=== PATIENT | male | born 1945 | race Caucasian/White ===

== ENCOUNTER 2019-02-16 09:45 | Emergency (ER) | payer OTHER ==
--- NOTE | 2019-02-16 11:55 | RAD REPORT ---
EXAM DESCRIPTION: RAD - Tib Fib Left - 02/16/2019 11:19 am CLINICAL HISTORY: Fall, left tib-fib pain COMPARISON: No remote imaging available. FINDINGS: Knee joint findings are separately detailed. Distal to the knee joint the tibia and fibula show no fracture or acute finding. Very minimal degenerative change at the ankle joint with no acute findings seen. No foreign body or other soft tissue abnormality. IMPRESSION: Negative left tibia and fibula examination with the exception of the tibial plateau whic h is separately detailed in a knee report.
--- NOTE | 2019-02-16 11:58 | RAD REPORT ---
EXAM DESCRIPTION: RAD - Knee Left 3 View - 02/16/2019 11:19 am CLINICAL HISTORY: Fall, left knee pain COMPARISON: No remote in FINDINGS: A lateral tibial plateau fracture is present depressed approximately 8 mm along the far le ft lateral margin. Multiple small fracture fragments are present. On the AP projection there is suspe cted to be an additional sagittal oriented fracture plane extends into the metaphysis. Underlying knee joint degenerative changes are present seen as medial compartment marginal spurring a nd spurring of the tibial spine. There are minimal spurs along the articular margins of the patella.J oint effusion is present. Fat fluid level is not currently present. No foreign body or soft tissue ab normality seen. IMPRESSION: Comminuted lateral tibial plateau acute fracture depressed up to 8 mm along the lateral margin. Suspected sagittal fracture plane in the lateral tibial plateau extending into the metaphysis. No dis traction of this suspected fracture. Clinical concerns for internal derangement or occult bony injury could be further assessed with MR im aging.
--- NOTE | 2019-02-16 11:59 | RAD REPORT ---
EXAM DESCRIPTION: RAD - Hip Left 2 View - 02/16/2019 11:19 am CLINICAL HISTORY: Fall, hip and leg pain COMPARISON: None. FINDINGS: AP and frogleg views of the left hip were obtained. There is no fracture or dislocation. N o acute or destructive bony process seen. Mild degenerative changes are present along the superior a cetabular rim. No AVN or focal femoral head abnormality. No soft tissue abnormality. IMPRESSION: Degenerative change at the left hip joint. No fracture or acute finding seen.
--- NOTE | 2019-02-16 12:30 | EDPHYS ---
Physician Documentation [facility] Name: Robert Tubbs Age: 73 yrs Sex: Male : 1945 Arrival Date: 02/16/2019 Time: 09:49 Bed Treatment Private MD: ED Physician Jose Cruz Matthews HPI: 02/16 10:21 This 73 yrs old Male presents to ER via Ambulatory with complaints of Knee jmm Pain, Hip Pain. 10:21 The patient presents with an injury, pain. Onset: The symptoms/episode began/occurred jmm acutely, just prior to arrival. Modifying factors: The symptoms are alleviated by elevating leg, the symptoms are aggravated by movement, weight bearing. Associated signs and symptoms: Pertinent positives: swelling. This is a 73 year old male that presents to the ED with complaints of left hip pain, left knee pain, and left lower leg pain following a fall which occurred just prior to arrival. Patient states he slipped on dirt in his garage. Denies head injury. . Historical: - Allergies: 10:08 Unknown antibiotic; ss - PSHx: 10:08 R rotator cuff; Tonsillectomy; ss - Immunization history:: Adult Immunizations up to date. - Social history:: Smoking status: Patient/guardian denies using tobacco. - Ebola Screening: : Patient denies exposure to infectious person Patient denies travel to an Ebola-affected area in the 21 days before illness onset. ROS: 10:21 Constitutional: Negative for fever, chills, and weight loss, Cardiovascular: Negative jmm for chest pain, palpitations, and edema, Respiratory: Negative for shortness of breath, cough, wheezing, and pleuritic chest pain. 10:21 MS/extremity: Positive for injury or acute deformity, pain. 10:21 All other systems are negative. Exam: 10:21 Head/Face: atraumatic. Eyes: EOMI, no conjunctival erythema appreciated ENT: Moist jmm Mucus Membranes Neck: Trachea midline, Supple Chest/axilla: Normal chest wall appearance and motion. Cardiovascular: Regular rate and rhythm. No edema appreciated Respiratory: Normal respirations, no respiratory distress appreciated Abdomen/GI: Non distended, soft Back: Normal ROM Skin: General appearance color normal 10:21 Constitutional: The patient appears in no acute distress, alert, awake. 10:21 Musculoskeletal/extremity: left knee swelling noted, mild tibial tenderness, compartments are soft, NVI, full dorsalis pulse, NVI. 10:21 Skin: Appearance: Color: normal in color. 10:21 Neuro: Orientation: is normal, Mentation: is normal, Memory: is normal. 10:21 Psych: Behavior/mood is pleasant, cooperative. Vital Signs: 10:08 BP 190 / 66; Pulse 59; Resp 16; Temp 98.2(TE); Pulse Ox 100% on R/A; Weight 81.65 kg; ss Height 5 ft. 8 in. (172.72 cm); Pain /; 10:08 Body Mass Index 27.37 (81.65 kg, 172.72 cm) ss Procedures: 12:10 Splinting: Splint applied to left leg using knee immobilizer, applied by nurse. kelli Examined by me, post splint application: neurovascular intact, 2+ distal pulses palpable, brisk capillary refill noted, Patient tolerated. MDM: 10:21 Patient medically screened. [facility] 12:24 Data reviewed: vital signs, nurses notes. Counseling: I had a detailed discussion with kelli the patient and/or guardian regarding: the historical points, exam findings, and any diagnostic results supporting the discharge/admit diagnosis, radiology results, the need for outpatient follow up, to return to the emergency department if symptoms worsen or persist or if there are any questions or concerns that arise at home. 12:24 ED course: I discussed the patient with Dr. Olivier whom advised knee immobilizer with non jmm weight bearing. I discussed this in detail with the patient whom agreed with the plan of care. . 02/16 10:33 Order name: Hip Left 2 View XRAY; Complete Time: 12:02 [facility] 02/16 10:33 Order name: Knee Left 3 View XRAY; Complete Time: 12:02 [facility] 02/16 10:33 Order name: Tib Fib Left XRAY; Complete Time: 12:02 [facility] 02/16 12:04 Order name: Knee Immobilizer; Complete Time: 12:44 [facility] 02/16 12:44 Order name: Crutches; Complete Time: 12:44 ss 02/16 12:44 Order name: Crutch Training; Complete Time: 12:44 ss Administered Medications: No medications were administered Disposition: 15:33 Co-signature as Attending Physician, Jose Cruz Matthews MD I agree with the assessment and viki plan of care. Disposition: 02/16/19 12:28 Discharged to Home. Impression: Tibial Plateau Fracture. - Condition is Stable. - Discharge Instructions: Displaced Tibial Plateau Fracture. - Prescriptions for orphenadrine citrate 100 mg Oral Tablet Sustained Release - take 1 tablet by ORAL route 2 times per day As needed; 20 tablet. - Medication Reconciliation Form, Thank You Letter, Antibiotic Education, Prescription Opioid Use form. - Follow up: Rudy Olivier MD; When: 1 - 2 days; Reason: Recheck today's complaints, Continuance of care, Re-evaluation by your physician. Signatures: Dispatcher [employer] EDID Jose Cruz Matthews MD MD cha Mickail, Joel, PA PA Shira Vazquez RN RN ss Corrections: (The following items were deleted from the chart) 12:45 12:28 02/16/2019 12:28 Discharged to Home. Impression: Tibial Plateau Fracture. ss Condition is Stable. Forms are Medication Reconciliation Form, Thank You Letter, Antibiotic Education, Prescription Opioid Use. Follow up: Dr. Rudy Olivier; When: 1 - 2 days; Reason: Recheck today's complaints, Continuance of care, Re-evaluation by your physician. kelli
--- NOTE | 2019-02-16 12:30 | ER ---
Nurse's Notes [facility] Name: Robert Tubbs Age: 73 yrs Sex: Male : 1945 Arrival Date: 02/16/2019 Time: 09:49 Bed Treatment Private MD: Diagnosis: Tibial Plateau Fracture Presentation: 02/16 10:07 Presenting complaint: Patient states: Mild L hip and knee pain that began after ss tripping in garage this morning at 0845. Transition of care: patient was not received from another setting of care. Onset of symptoms was February 16, 2019. Risk Assessment: Do you want to hurt yourself or someone else? Patient reports no desire to harm self or others. Initial Sepsis Screen: Does the patient meet any 2 criteria? No. Patient's initial sepsis screen is negative. Does the patient have a suspected source of infection? No. Patient's initial sepsis screen is negative. Care prior to arrival: None. 10:07 Method Of Arrival: Ambulatory ss 10:07 Acuity: SYMONE 4 ss Historical: - Allergies: 10:08 Unknown antibiotic; ss - PSHx: 10:08 R rotator cuff; Tonsillectomy; ss - Immunization history:: Adult Immunizations up to date. - Social history:: Smoking status: Patient/guardian denies using tobacco. - Ebola Screening: : Patient denies exposure to infectious person Patient denies travel to an Ebola-affected area in the 21 days before illness onset. Screenin:07 Abuse screen: Denies threats or abuse. Denies injuries from another. Nutritional ss screening: No deficits noted. Tuberculosis screening: Never had TB. Fall Risk Fall in past 12 months (25 points). No secondary diagnosis (0 pts). No IV (0 pts). Ambulatory Aid- None/Bed Rest/Nurse Assist (0 pts). Gait- Normal/Bed Rest/Wheelchair (0 pts) Mental Status- Oriented to own ability (0 pts). Assessment: 10:07 General: Appears in no apparent distress. comfortable, Behavior is calm, cooperative, ss Denies fever, feeling ill, fatigue, chills. Pain: Complains of pain in L hip, L knee Pain currently is 1 out of 10 on a pain scale. Quality of pain is described as aching, tender, Pain began just after fall Is continuous, Aggravated by increased activity. Neuro: Level of Consciousness is awake, alert, obeys commands, Oriented to person, place, time, situation. Cardiovascular: Capillary refill < 3 seconds is brisk in bilateral fingers Patient's skin is warm and dry. Respiratory: Airway is patent Respiratory effort is even, unlabored, Respiratory pattern is regular, symmetrical. GI: Abdomen is non-distended. EENT: Nares are clear Oral mucosa is moist. Throat is clear. Derm: Skin is intact, is healthy with good turgor, Skin is dry, Skin is pink, warm \T\ dry. normal. Musculoskeletal: Circulation, motion, and sensation intact. Range of motion: intact in all extremities, Swelling minimal swelling noted to L knee. 10:11 Reassessment: patient reports he has not taken his morning medications yet. ss Vital Signs: 10:08 BP 190 / 66; Pulse 59; Resp 16; Temp 98.2(TE); Pulse Ox 100% on R/A; Weight 81.65 kg; ss Height 5 ft. 8 in. (172.72 cm); Pain 10; 10:08 Body Mass Index 27.37 (81.65 kg, 172.72 cm) ED Course: 09:49 Patient arrived in ED. cf2 10:07 Triage completed. ss 10:07 Patient has correct armband on for positive identification. Bed in low position. Call ss light in reach. 10:08 Arm band placed on right wrist. ss 10:17 Compa Nieves PA is PHCP. m 10:17 Jose Cruz Matthews MD is Attending Physician. jmm 11:13 Shira Barreto, RANJANA is Primary Nurse. ss 11:20 Hip Left 2 View XRAY In Process Unspecified. EDMS 11:20 Knee Left 3 View XRAY In Process Unspecified. EDMS 11:20 Tib Fib Left XRAY In Process Unspecified. EDMS 12:26 Rudy Olivier MD is Referral Physician. m 12:44 No provider procedures requiring assistance completed. Patient did not have IV access ss during this emergency room visit. Crutch training done. Knee immobilizer applied on left knee. Administered Medications: No medications were administered Outcome: 12:28 Discharge ordered by . [facility] 12:44 Discharged to home via wheelchair, with crutches. ss 12:44 Condition: good 12:44 Discharge instructions given to patient, family, Instructed on discharge instructions, follow up and referral plans. medication usage, crutch walking, Demonstrated understanding of instructions, follow-up care, medications, crutch walking, Prescriptions given X 1. 12:45 Patient left the ED. Signatures: Dispatcher [employer] EDMS Compa Nieves PA PA jmm Smirch, Shelby, RN RN Payton Fernandez 2
== END 2019-02-16 12:45 | disposition home or self-care (01) ==
LOC: ER 09:45
DX: S82.142A Displaced bicondylar fracture of left tibia, initial encounter for closed fracture (principal); W01.0XXA Fall on same level from slipping, tripping and stumbling without subsequent striking against object, initial encounter; Y93.89 Activity, other specified; Y92.008 Other place in unspecified non-institutional (private) residence as the place of occurrence of the external cause
CPT/HCPCS: 99283

== ENCOUNTER 2019-05-19 14:25 | Emergency (ER) | payer OTHER ==
[2019-05-19] MEDS ORDERED: PHENYLEPHRINE 0.5% NOSE 15ML NAS ONE ×2 (14:39→15:49)
--- NOTE | 2019-05-19 17:22 | ER ---
Nurse's Notes [facility] Name: Robert Tubbs Age: 73 yrs Sex: Male : 1945 Arrival Date: 05/19/2019 Time: 14:26 Bed 18 Private MD: Diagnosis: Epistaxis Presentation: 05/19 14:35 Presenting complaint: Patient states: Nose bleed > 15 min, no trauma or injury, small ph amount of bleeding noted in triage. Transition of care: patient was not received from another setting of care. Onset of symptoms was May 19, 2019. Risk Assessment: Do you want to hurt yourself or someone else? Patient reports no desire to harm self or others. Initial Sepsis Screen: Does the patient meet any 2 criteria? No. Patient's initial sepsis screen is negative. Does the patient have a suspected source of infection? No. Patient's initial sepsis screen is negative. 14:35 Method Of Arrival: Ambulatory ph 14:35 Acuity: SYMONE 4 ph Historical: - Allergies: 14:34 unknown antibiotic; ph - Home Meds: 14:34 Plavix Oral [Active]; Aspirin Oral [Active]; amlodipine oral [Active]; atorvastatin ph oral oral [Active]; - PMHx: 14:34 Hypertension; High Cholesterol; ph - PSHx: 14:34 R rotator cuff; Tonsillectomy; cardiac stent; ph - Immunization history:: Last tetanus immunization: unknown. - Social history:: Smoking status: Patient/guardian denies using tobacco. - Ebola Screening: : No symptoms or risks identified at this time. Screenin:45 Abuse screen: Denies threats or abuse. Nutritional screening: No deficits noted. em Tuberculosis screening: No symptoms or risk factors identified. Fall Risk None identified. Assessment: 14:49 General: Appears in no apparent distress. comfortable, Behavior is calm, cooperative, em Denies fever. Pain: Denies pain. Neuro: Level of Consciousness is awake, alert, obeys commands, Oriented to person, place, time, situation, Appropriate for age. Cardiovascular: Capillary refill < 3 seconds Patient's skin is warm and dry. Respiratory: Airway is patent Respiratory effort is even, unlabored, Respiratory pattern is regular, symmetrical. GI: Patient currently denies nausea, vomiting. EENT: Nares with bleeding noted bilaterally. Derm: Skin is intact, is healthy with good turgor, Skin is pink, warm \T\ dry. Musculoskeletal: Circulation, motion, and sensation intact. Capillary refill < 3 seconds, Range of motion: intact in all extremities. 15:30 Reassessment: Patient appears in no apparent distress at this time. Patient and/or em family updated on plan of care and expected duration. Pain level reassessed. Patient is alert, oriented x 3, equal unlabored respirations, skin warm/dry/pink. bleeding unchanged, blood noted in posterior pharynx, provider notified. 16:34 Reassessment: Patient appears in no apparent distress at this time. drainage noted em around rhino rocket, provider notified. 17:08 Reassessment: bleeding has diminished on the right nare, provider notified. em Vital Signs: 14:34 BP 175 / 62; Pulse 61; Resp 18; Temp 98.0; Pulse Ox 99% on R/A; Weight 79.38 kg; Height ph 5 ft. 8 in. (172.72 cm); 17:14 BP 197 / 67; Pulse 60; Resp 18; Pulse Ox 100% on R/A; em 14:34 Body Mass Index 26.61 (79.38 kg, 172.72 cm) ph 17:14 pt reports he takes BP medication in the evening around dinner, provider notified em ED Course: 14:26 Patient arrived in ED. mr 14:30 Compa Nieves PA is PHCP. [facility] 14:30 José Luis Beaulieu MD is Attending Physician. m 14:35 Triage completed. ph 14:36 Bc Diaz LVN is Primary Nurse. em 14:45 Patient has correct armband on for positive identification. Bed in low position. Call em light in reach. 14:48 Arm band placed on. em 16:10 Assist provider with nosebleed control using direct pressure, nasal clamp, rhino rocket em placed for extensive packing needs, Bleeding from right nares. Set up for procedure. Performed by Compa SNIDER Bleeding stopped. Patient tolerated well. 17:21 Angeline Regalado MD is Referral Physician. m 17:36 Patient did not have IV access during this emergency room visit. em Administered Medications: 15:15 Drug: Vish-Synephrine [place] 0.5 % 2 sprays Route: Intranasal; Site: right nare; em 15:54 Follow up: Response: Other; bleeding unchanged em Outcome: 17:21 Discharge ordered by MD. pereira 17:35 Discharged to home ambulatory. em 17:35 Condition: good 17:35 Discharge instructions given to patient, Instructed on discharge instructions, follow up and referral plans. medication usage, Demonstrated understanding of instructions, follow-up care, medications, Prescriptions given X 1. 17:36 Patient left the ED. em Signatures: Compa Nieves PA PA jmm Rivera, Mary mr Diaz, Bc, STRETCHING MACHINE OPERATOR STRETCHING MACHINE OPERATOR em Teresa Miller, RN RN ph Corrections: (The following items were deleted from the chart) 14:45 14:45 Patient has correct armband on for positive identification. Placed in gown. Bed em in low position. Call light in reach. Adult w/ patient. em
--- NOTE | 2019-05-19 17:22 | EDPHYS ---
Physician Documentation [facility] Name: Robert Tubbs Age: 73 yrs Sex: Male : 1945 Arrival Date: 05/19/2019 Time: 14:26 Bed 18 Private MD: ED Physician José Luis Beaulieu HPI: 05/19 14:56 This 73 yrs old Male presents to ER via Ambulatory with complaints of Nose jmm Bleed. 14:56 The patient presents with a nose bleed, that is apparently anterior, from the right jmm nare. Onset: The symptoms/episode began/occurred gradually, .5 hour(s) ago. Modifying factors: The symptoms are alleviated by nothing. the symptoms are aggravated by nothing. Associated signs and symptoms: Loss of consciousness: the patient experienced no loss of consciousness. This is a 73 year old male with a history of htn, hlp that presents to the ED with complaints of right nostril nose bleeding beginning just prior to arrival. patient has had similar episodes in the past but more mild. Patient denies vomiting blood, shortness of breath. . Historical: - Allergies: 14:34 unknown antibiotic; ph - Home Meds: 14:34 Plavix Oral [Active]; Aspirin Oral [Active]; amlodipine oral [Active]; atorvastatin ph oral oral [Active]; - PMHx: 14:34 Hypertension; High Cholesterol; ph - PSHx: 14:34 R rotator cuff; Tonsillectomy; cardiac stent; ph - Immunization history:: Last tetanus immunization: unknown. - Social history:: Smoking status: Patient/guardian denies using tobacco. - Ebola Screening: : No symptoms or risks identified at this time. ROS: 14:56 Constitutional: Negative for fever, chills, and weight loss. jmm 14:56 Neck: Negative for injury, pain, and swelling, Cardiovascular: Negative for chest pain, palpitations, and edema, Respiratory: Negative for shortness of breath, cough, wheezing, and pleuritic chest pain, Abdomen/GI: Negative for abdominal pain, nausea, vomiting, diarrhea, and constipation, Neuro: Negative for headache, weakness, numbness, tingling, and seizure. 14:56 ENT: Positive for nose bleed. 14:56 All other systems are negative. Exam: 14:56 Constitutional: This is a well developed, well nourished patient who is awake, alert, jmm and in no acute distress. Head/Face: atraumatic. Eyes: EOMI, no conjunctival erythema appreciated 14:56 Neck: Trachea midline, Supple Chest/axilla: Normal chest wall appearance and motion. Cardiovascular: Regular rate and rhythm. No edema appreciated Respiratory: Normal respirations, no respiratory distress appreciated Abdomen/GI: Non distended, soft Back: Normal ROM Skin: General appearance color normal MS/ Extremity: Moves all extremities, no obvious deformities appreciated, no edema noted to the lower extremities Neuro: Awake and alert, normal gait Psych: Behavior is normal, Mood is normal, Patient is cooperative and pleasant 14:56 ENT: Posterior pharynx: blood noted in the posterior pharynx, blood noted in the right nostril, mild bleeding appreciated. Vital Signs: 14:34 BP 175 / 62; Pulse 61; Resp 18; Temp 98.0; Pulse Ox 99% on R/A; Weight 79.38 kg; Height ph 5 ft. 8 in. (172.72 cm); 17:14 BP 197 / 67; Pulse 60; Resp 18; Pulse Ox 100% on R/A; em 14:34 Body Mass Index 26.61 (79.38 kg, 172.72 cm) ph 17:14 pt reports he takes BP medication in the evening around dinner, provider notified em Procedures: 17:19 Performed Rhinorocket insertion. Rhinorocket inserted. 7 ml of air injected. patient jeannem tolerated the procedure well. . MDM: 14:56 Patient medically screened. [facility] 17:19 Data reviewed: vital signs, nurses notes. Counseling: I had a detailed discussion with [facility] the patient and/or guardian regarding: the historical points, exam findings, and any diagnostic results supporting the discharge/admit diagnosis, the need for outpatient follow up, to return to the emergency department if symptoms worsen or persist or if there are any questions or concerns that arise at home. ED course: Bleeding has decreased in the ED after insertion of the rhino rocket. Patient advised to follow up with ENT and otherwise given strict return precautions. . Administered Medications: 15:15 Drug: Vish-Synephrine [place] 0.5 % 2 sprays Route: Intranasal; Site: right nare; em 15:54 Follow up: Response: Other; bleeding unchanged em Disposition: 05/20 07:09 Co-signature as Attending Physician, José Luis Beaulieu MD I agree with the assessment and kdr plan of care. Disposition: 05/19/19 17:21 Discharged to Home. Impression: Epistaxis. - Condition is Stable. - Discharge Instructions: Nosebleed, Adult. - Prescriptions for Clindamycin HCl 300 mg Oral Capsule - take 1 capsule by ORAL route every 6 hours for 10 days; 40 capsule. - Medication Reconciliation Form, Thank You Letter, Antibiotic Education, Prescription Opioid Use form. - Follow up: Angeline Regalado MD; When: 2 - 3 days; Reason: Recheck today's complaints, Continuance of care, Re-evaluation by your physician. Signatures: José Luis Beaulieu MD MD kdr Mickail, Joel, PA PA jmm Bc Diaz, TASTE TESTER TASTE TESTER em Teresa Miller RN RN ph Corrections: (The following items were deleted from the chart) 05/19 17:36 17:21 05/19/2019 17:21 Discharged to Home. Impression: Epistaxis. Condition is Stable. em Forms are Medication Reconciliation Form, Thank You Letter, Antibiotic Education, Prescription Opioid Use. Follow up: Angeline Regalado; When: 2 - 3 days; Reason: Recheck today's complaints, Continuance of care, Re-evaluation by your physician. kelli
[2019-05-19 17:56] VITALS: TEMP 98
[2019-05-19 17:58] VITALS: BP 197/67; O2SAT 100
== END 2019-05-19 17:36 | disposition home or self-care (01) ==
LOC: ER 14:25
PROC: 2Y41X5Z Packing of Nasal Region using Packing Material (ICD-10-PCS; principal; 2019-05-19)
DX: R04.0 Epistaxis (principal); I10 Essential (primary) hypertension; E78.00 Pure hypercholesterolemia, unspecified; Z79.01 Long term (current) use of anticoagulants; Z95.818 Presence of other cardiac implants and grafts
CPT/HCPCS: 30901; 99283

== ENCOUNTER 2019-07-01 01:07 | Emergency (ER) | payer OTHER ==
--- NOTE | 2019-07-01 02:40 | ER ---
Nurse's Notes [facility] Name: Robert Tubbs Age: 73 yrs Sex: Male : 1945 Arrival Date: 07/01/2019 Time: 01:09 Bed 8 Private MD: Diagnosis: Adverse effect of anticoagulants;Bleeding gums Presentation: 07/01 01:28 Presenting complaint: Patient states: watching TV when I felt something in my mouth. dm5 Reached in and my hand was bloody. I have been watching it for 2-3 hours and it hasn't stopped. Early May I had a nose bleed and my blood pressure was in the 190's like it is reading now. Transition of care: patient was not received from another setting of care. Onset of symptoms was July 01, 2019. Risk Assessment: Do you want to hurt yourself or someone else?. Initial Sepsis Screen: Does the patient meet any 2 criteria? No. Patient's initial sepsis screen is negative. Does the patient have a suspected source of infection? No. Patient's initial sepsis screen is negative. Care prior to arrival: None. 01:28 Method Of Arrival: Ambulatory dm5 01:28 Acuity: SYMONE 3 dm5 Triage Assessment: 01:31 General: Appears in no apparent distress. Behavior is calm, cooperative. Pain: Denies dm5 pain. EENT: Reports bleeding from gums. Historical: - Allergies: 01:31 unknown antibiotic; dm5 01:45 Bactrim; wh 01:45 SHELLFISH; - Home Meds: 01:45 Januvia 50 mg oral tab 2 tabs once daily [Active]; lisinopril 40 mg Oral tab 1 tab once wh daily [Active]; propranolol 10 mg Oral tab 1 tab twice a day [Active]; glimepiride 4 mg Oral tab 1 tab once daily [Active]; aspirin 81 mg Oral TbEC 2 tabs twice a day [Active]; fenofibrate 150 mg oral cap 1 cap once daily [Active]; amlodipine 5 mg tab 1 tab once daily [Active]; clopidogrel 75 mg oral tab 1 tab once daily [Active]; tamsulosin 0.4 mg oral cp24 1 cap once daily [Active]; montelukast 10 mg oral tab 1 tab once daily [Active]; - PMHx: 01:31 High Cholesterol; Hypertension; Diabetes - NIDDM; dm5 - PSHx: 01:31 Carotid surgery; Heart stents; dm5 - Immunization history:: Adult Immunizations up to date. - Social history:: Smoking status: Patient/guardian denies using tobacco. - Ebola Screening: : Patient negative for fever greater than or equal to 101.5 degrees Fahrenheit, and additional compatible Ebola Virus Disease symptoms Patient denies exposure to infectious person. Screenin:40 Abuse screen: Denies threats or abuse. Denies injuries from another. Nutritional wh screening: No deficits noted. Tuberculosis screening: No symptoms or risk factors identified. Fall Risk None identified. Assessment: 01:45 General: Appears in no apparent distress. Behavior is calm, cooperative, appropriate wh for age. Pain: Denies pain. Neuro: Level of Consciousness is awake, alert, obeys commands, Oriented to person, place, time, situation, Appropriate for age. Cardiovascular: Heart tones S1 S2. Respiratory: Airway is patent Respiratory effort is even, unlabored, Respiratory pattern is regular, symmetrical, Breath sounds are clear bilaterally. GI: Abdomen is flat, non-distended. : No signs and/or symptoms were reported regarding the genitourinary system. EENT: Oral mucosa is moist. Throat is pink. Derm: Skin is intact, is healthy with good turgor, Skin is pink, warm \T\ dry. normal. Musculoskeletal: Circulation, motion, and sensation intact. 02:35 Reassessment: Patient appears in no apparent distress at this time. No changes from previously documented assessment. Patient and/or family updated on plan of care and expected duration. Pain level reassessed. Patient is alert, oriented x 3, equal unlabored respirations, skin warm/dry/pink. Vital Signs: 01:31 BP 192 / 67; Pulse 62; Resp 20; Temp 97.6; Pulse Ox 98% on R/A; Weight 83.91 kg; Height dm5 5 ft. 8 in. (172.72 cm); Pain 0/10; 01:46 BP 173 / 69; Pulse 59; Resp 18; Pulse Ox 100% ; wh 02:35 BP 160 / 60; Pulse 56; Resp 18; Pulse Ox 99% on R/A; wh 01:31 Body Mass Index 28.13 (83.91 kg, 172.72 cm) dm5 ED Course: 01:09 Patient arrived in ED. ds1 01:26 Loki Noyola MD is Attending Physician. ps1 01:30 Triage completed. dm5 01:30 Patient has correct armband on for positive identification. Bed in low position. Call light in reach. Side rails up X 1. Pulse ox on. NIBP on. 01:31 Arm band placed on right wrist. dm5 01:34 Kaden Canales is Primary Nurse. wh 02:55 No provider procedures requiring assistance completed. Patient did not have IV access during this emergency room visit. Administered Medications: No medications were administered Outcome: 02:37 Discharge ordered by . ps1 02:56 Discharged to home ambulatory. wh 02:56 Condition: stable 02:56 Discharge instructions given to patient, Instructed on discharge instructions, follow up and referral plans. POC Demonstrated understanding of instructions, follow-up care, POC 02:56 Patient left the ED. Signatures: Quynh Abernathy, RANJANA RN dm5 Dianelys Murrieta ds1 Kaden Canales Loki Noyola MD MD ps1
--- NOTE | 2019-07-01 02:41 | EDPHYS ---
Physician Documentation [facility] Name: Robert Tubbs Age: 73 yrs Sex: Male : 1945 Arrival Date: 07/01/2019 Time: 01:09 Bed 8 Private MD: ED Physician Loki Noyola HPI: 07/01 01:34 This 73 yrs old Male presents to ER via Ambulatory with complaints of ps1 Spitting Blood. 01:34 Patient is on ASA and Plavix. Used floss and injured lower gum line. Has bleeding from ps1 gums that is oozing. No pain. States that it will form a clot and then fall off. . Historical: - Allergies: 01:31 unknown antibiotic; dm5 01:45 Bactrim; wh 01:45 SHELLFISH; wh - Home Meds: 01:45 Januvia 50 mg oral tab 2 tabs once daily [Active]; lisinopril 40 mg Oral tab 1 tab once wh daily [Active]; propranolol 10 mg Oral tab 1 tab twice a day [Active]; glimepiride 4 mg Oral tab 1 tab once daily [Active]; aspirin 81 mg Oral TbEC 2 tabs twice a day [Active]; fenofibrate 150 mg oral cap 1 cap once daily [Active]; amlodipine 5 mg tab 1 tab once daily [Active]; clopidogrel 75 mg oral tab 1 tab once daily [Active]; tamsulosin 0.4 mg oral cp24 1 cap once daily [Active]; montelukast 10 mg oral tab 1 tab once daily [Active]; - PMHx: 01:31 High Cholesterol; Hypertension; Diabetes - NIDDM; dm5 - PSHx: 01:31 Carotid surgery; Heart stents; dm5 - Immunization history:: Adult Immunizations up to date. - Social history:: Smoking status: Patient/guardian denies using tobacco. - Ebola Screening: : Patient negative for fever greater than or equal to 101.5 degrees Fahrenheit, and additional compatible Ebola Virus Disease symptoms Patient denies exposure to infectious person. ROS: 01:34 Constitutional: Negative for fever, chills, and weight loss, Eyes: Negative for injury, ps1 pain, redness, and discharge, Cardiovascular: Negative for chest pain, palpitations, and edema, Respiratory: Negative for shortness of breath, cough, wheezing, and pleuritic chest pain, Abdomen/GI: Negative for abdominal pain, nausea, vomiting, diarrhea, and constipation, MS/Extremity: Negative for injury and deformity, Skin: Negative for injury, rash, and discoloration, Neuro: Negative for headache, weakness, numbness, tingling, and seizure. Exam: 01:34 Constitutional: This is a well developed, well nourished patient who is awake, alert, ps1 and in no acute distress. Head/Face: Normocephalic, atraumatic. Eyes: Pupils equal round and reactive to light, extra-ocular motions intact. Lids and lashes normal. Conjunctiva and sclera are non-icteric and not injected. Cardiovascular: Regular rate and rhythm. No gallops, murmurs, or rubs. Normal PMI, no JVD. No pulse deficits. Respiratory: Lungs have equal breath sounds bilaterally, clear to auscultation and percussion. No rales, rhonchi or wheezes noted. No increased work of breathing, no retractions or nasal flaring. Abdomen/GI: Soft, non-tender, with normal bowel sounds. No distension or tympany. No guarding or rebound. No evidence of tenderness throughout. Skin: Warm, dry with normal turgor. Normal color with no rashes, no lesions, and no evidence of cellulitis. MS/ Extremity: Pulses equal, no cyanosis. Neurovascular intact. Full, normal range of motion. 01:34 ENT: Ear canal(s): are normal, Nose: is normal, Mouth: Gums: bleeding, on the lower left third molar and lower left second molar. Vital Signs: 01:31 BP 192 / 67; Pulse 62; Resp 20; Temp 97.6; Pulse Ox 98% on R/A; Weight 83.91 kg; Height dm5 5 ft. 8 in. (172.72 cm); Pain 0/10; 01:46 BP 173 / 69; Pulse 59; Resp 18; Pulse Ox 100% ; wh 02:35 BP 160 / 60; Pulse 56; Resp 18; Pulse Ox 99% on R/A; wh 01:31 Body Mass Index 28.13 (83.91 kg, 172.72 cm) dm5 MDM: 01:41 Patient medically screened. ps1 02:37 Data reviewed: vital signs, nurses notes, and as a result, I will discharge patient. ps1 Counseling: I had a detailed discussion with the patient and/or guardian regarding: the historical points, exam findings, and any diagnostic results supporting the discharge/admit diagnosis, to return to the emergency department if symptoms worsen or persist or if there are any questions or concerns that arise at home. ED course: hold morning anticoagulant dose. Bleeding improved. Stable for discharge. . Administered Medications: No medications were administered Disposition: 07/01/19 02:37 Discharged to Home. Impression: Adverse effect of anticoagulants, Bleeding gums. - Condition is Stable. - Discharge Instructions: Bleeding Precautions When on Anticoagulant Therapy. - Medication Reconciliation Form, Thank You Letter, Antibiotic Education, Prescription Opioid Use form. - Follow up: Private Physician; When: As needed; Reason: If symptoms return, Recheck today's complaints, Continuance of care. Follow up: Emergency Department; When: As needed; Reason: Worsening of condition. - Problem is new. - Symptoms have improved. Signatures: Quynh Abernathy, RN RN dm5 Kaden Canales Phillip, MD MD ps1 Corrections: (The following items were deleted from the chart) 02:56 02:37 07/01/2019 02:37 Discharged to Home. Impression: Adverse effect of wh anticoagulants; Bleeding gums. Condition is Stable. Forms are Medication Reconciliation Form, Thank You Letter, Antibiotic Education, Prescription Opioid Use. Follow up: Private Physician; When: As needed; Reason: If symptoms return, Recheck today's complaints, Continuance of care. Follow up: Emergency Department; When: As needed; Reason: Worsening of condition. Problem is new. Symptoms have improved. ps1
[2019-07-01 03:13] VITALS: TEMP 97.6
[2019-07-01 03:15] VITALS: BP 160/60; O2SAT 99
== END 2019-07-01 02:56 | disposition home or self-care (01) ==
LOC: ER 01:07
DX: K06.8 Other specified disorders of gingiva and edentulous alveolar ridge (principal); T45.515A Adverse effect of anticoagulants, initial encounter; I10 Essential (primary) hypertension; E78.00 Pure hypercholesterolemia, unspecified; E11.9 Type 2 diabetes mellitus without complications; Z79.01 Long term (current) use of anticoagulants; Z79.82 Long term (current) use of aspirin; Z88.1 Allergy status to other antibiotic agents; Z91.013 Allergy to seafood; Z95.818 Presence of other cardiac implants and grafts
CPT/HCPCS: 99283

== ENCOUNTER 2020-05-02 06:05 | Day surgery (SDC) | payer OTHER ==
[2020-04-25 14:24] LABS: Absolute Lymphocytes (CBC) 0.6 K/uL (0.7-4.9); Basophils % 0.6 % (0-1.3); Hematocrit 33.5 % (39.6-49.0); MPV 8.7 fL (7.6-11.3); RBC Red Blood Cell Count 3.61 M/uL (4.33-5.43)
--- NOTE | 2020-04-25 14:25 | RAD REPORT ---
EXAM DESCRIPTION: Cesar Daigle (2 Views)04/25/2020 2:13 pm CLINICAL HISTORY: Preop for hand surgery hypertension COMPARISON: None FINDINGS: Blunting of the left lateral costophrenic sulcus could be secondary to pleural thickening or small pleural effusion. Lungs appear clear of acute infiltrate. The heart is mildly enlarged
[2020-04-25 14:27] LABS: Protime INR 1.03
[2020-04-25 14:32] LABS: Potassium 4.2 mmol/L (3.5-5.1)
[2020-04-25 15:02] LABS: Blood Morphology Comment NOT SEEN (NOT SEEN); Platelet Estimate DECR; White Blood Cell Scan OK (OK)
--- NOTE | 2020-04-25 17:50 | EKG ---
Test Date: 2020-04-25 Test Time: 13:42:00 Tower Erector Helper: LIBBY MEASUREMENT RESULTS: Intervals: Rate: 58 NJ: 202 QRSD: 94 QT: 452 QTc: 443 [place]: P: 46 NJ: 202 QRS: 1 T: 71 INTERPRETIVE STATEMENTS: Sinus bradycardia Otherwise normal ECG Compared to ECG 10/17/2015 11:27:29 Sinus rhythm no longer present Electronically Signed On 04-25-20 17:49:52 CDT by Martínez Cox
--- OUTSIDE RECORDS SUMMARY | 2020-05-02 06:08 | XMS REPORT ---
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
--- OUTSIDE RECORDS SUMMARY | 2020-05-02 06:08 | XMS REPORT ---
:1945 Author Organization [facility] Address [address] [place] [address] Care Team Providers Name Role Phone Rudy Olivier Unavailable [phone] PROBLEMS Type Condition ICD9-CM [id number] Onset Condition SNOMED Code Notes Code Code Dates Status Problem Trigger middle M65.331 Active 370717818 finger of right hand Problem Primary M18.11 Active 62049696 osteoarthritis of first carpometacarpal joint of right hand Problem Primary M16.12 Active 773438125 osteoarthritis of left hip Problem Primary M19.032 Active 012585273 osteoarthritis of left wrist Problem Pain, joint, M25.541 Active [id number] hand, right ALLERGIES Allergen (clinical drug Drug/Non Drug Reaction Allergy Type Onset D ate Status ingredient) Allergy documented on EMR Sulfa Unknown Drug Allergy Active sulfamethoxazole / Bactrim([facility] Unknown Drug Allergy Act rufino trimethoprim Code:[address]-73) ENCOUNTERS from 1945 to 2020-03-25 Encounter Location Date Provider Diagnosis [facility] [address], Juliane Olivier [facility] [place] [address] IMMUNIZATIONS Vaccine Route Administration Date Status Betamethasone Sodium Phosphate Unknown Jul 27, 2019 A dministered Betamethasone Sodium Phosphate Unknown Apr 27, 2018 A dministered LIDOCAINE HCL 10MG/ML Unknown Jul 27, 2019 Administer ed LIDOCAINE HCL 10MG/ML Unknown Apr 27, 2018 Administer ed SOCIAL HISTORY Tobacco Use: Social History Observation Description Date Details (start date - stop date) Never Smoker Sex Assigned At : Social History Observation Description Sex Assigned At Unknown Alcohol Screen Question Answer Notes Did you have a drink containing alcohol in the past year? No Points 0 Interpretation Negative Tobacco Use/Smoking Question Answer Notes Are you a never smoker Additional Findings: Tobacco Non-User Current non-smoker REASON FOR REFERRAL No Information VITAL SIGNS No information MEDICATIONS Medication SIG (Take, Route, Start Date End Date Status Frequency, Duration) Lisinopril 40 MG 1 tablet Orally Once a A ctive day for 30 day(s) Vascepa Active Propranolol HCl 10 MG 1 tablet on an empty Active stomach Orally Twice a day for 30 day(s) Amlodipine Besylate 5 MG Oral for 90 Act rufino Montelukast Sodium 10 MG Oral for 90 Act rufino Pantoprazole Sodium Active Tamsulosin HCl 0.4 MG Oral for 90 Active Lidocaine Not-Taking Fenoprofen Calcium Not-Takin g Diphendryl Active Aspir-81 81 MG 1 tablet Orally Once a Act rufino day for 30 day(s) Januvia 100 MG 1 tablet Orally Once a Act rufino day for 30 day(s) Atorvastatin Calcium 40 MG Oral for 90 N ot-Taking Propranolol HCl Active Glimepiride 4 MG Oral for 90 Active Voltaren 1 % as directed Transdermal Dec, Acti ve apply small amount to affected area QID PROCEDURES No Information RESULTS No Results REASON FOR VISIT emg/ncs MEDICAL (GENERAL) HISTORY Type Description Date Medical History hypertension Medical History diabetes Surgical History right shoulder Surgical History tonsils Surgical History left shoulder Surgical History Endarterectomy Surgical History stent Goals Section No Information Health Concerns No Information MEDICAL EQUIPMENT No Information MENTAL STATUS No Information FUNCTIONAL STATUS No Information ASSESSMENTS No Information PLAN OF TREATMENT Medication Medication Name Sig Start Date Stop Date Voltaren 1 % as directed Transdermal apply small amount to Dec, affected area QID Next Appt Details Provider Name:Rudy Olivier, 2020-04-01 0 8:30:00 AM, [address], [place], [address], Insurance Providers Payer Name Payer Address Payer Insured Patient Coverage Cover age End Phone Name Relationship to Start Date Yomi e Insured [employer] [address] [address] [phone] Arley, self MEDICARE [place] [address] [phone]
--- OUTSIDE RECORDS SUMMARY | 2020-05-02 06:08 | XMS REPORT | Continuity of Care Document ---
:[address] [facility] t Address [address] [place] [address] Care Team Providers Name Role Phone Unavailable Unavailable Unavailable Problems This patient has no known problems. Allergies, Adverse Reactions, Alerts Allergy Allergy Status Severity Reaction(s) Onset Inactive Treating Comm ents Source Name Type Date Date Clinician Bactrim Adverse Active Info Not [facility] Reaction Available [facility] Medications Ordered Filled Start Stop Current Ordering Indication Dosage Frequency Signature Comments Components Source Medication Medication Date Date Medication? Clinician (SIG) Name Name Norris Lycaroline Yes Ruyd as [facility] Vascepa Vascepa Yes Rudy not [facility] defined [facility] Lisinopril Lisinopril Yes Rudy [address] [facility] Montelukast Montelukast Yes Rudy not [facility] Sodium Sodium [facility] defined [facility] Aspir-81 Aspir-81 Yes Rudy [address] [facility] Tamsulosin Tamsulosin Yes Rudy not [facility] HCl HCl [facility] defined [facility] Januvia Januvia Yes Rudy [address] [facility] Diphendryl Diphendryl Yes Rudy not [facility] Fenoprofen Fenoprofen Yes Rudy not [facility] Calcium Calcium [facility] defined [facility] Lidocaine Lidocaine Yes Rudy not [facility] Propranolol Propranolol Yes Rudy [address] [facility] HCl HCl [facility] on an [facility] Glimepiride Glimepiride Yes Rudy not [facility] Amlodipine Amlodipine Yes Rudy not [facility] Besylate Besylate [facility] defined [facility] Atorvastati Atorvastati Yes Rudy not [facility] n Calcium n Calcium [facility] defined [facility] Propranolol Propranolol Yes Rudy not [facility] HCl HCl [facility] defined [facility] Pantoprazol Pantoprazol Yes Rudy not [facility] Sodium e Sodium [facility] defined [facility] Procedures This patient has no known procedures. Encounters Start End Encounter Admission Attending Care Care Encounter Source Date/Time Date/Time Type Type Clinicians Facility Department ID 2020-04-24 2020-04-24 Outpatient [facility] [id number] [facility] 2020-04-01 2020-04-01 Outpatient [facility] [id number] [facility] 00:00[facility]00 00[facility]00[facility]00 [facility] 2020-03-25 2020-03-25 Outpatient [facility] [id number] [facility] 2020-03-24 2020-03-24 Outpatient [facility] [id number] [facility] 2020-02-26 2020-02-26 Outpatient Leander Tabort [id number] 09[facility]30[facility] 09[facility] 2020-01-24 2020-01-24 [facility] [id number] [address] 11:12:00 11:12:00 [facility] 2020-01-15 2020-01-15 Outpatient Leander Serrano [id number] 09:15:00 09:15:00 [facility] 2019-07-27 2019-07-27 Outpatient Leander Serrano [id number] [facility] 08:[facility]00 08:00[facility]00 [facility] Results This patient has no known results.
--- OUTSIDE RECORDS SUMMARY | 2020-05-02 06:08 | XMS REPORT ---
:1945 Author Organization [facility] Address [address] [place] [address] Care Team Providers Name Role Phone OlivierRudy ortez Unavailable [phone] PROBLEMS Type Condition ICD9-CM [id number] Onset Condition SNOMED Code Notes Code Code Dates Status Problem Primary M16.12 Active 025957946 osteoarthritis of left hip Problem Carpal tunnel G56.01 Active 294052567148161 syndrome of right wrist Problem Carpal tunnel G56.02 Active 058033572136973 syndrome of left wrist Problem Primary M19.032 Active 469727637 osteoarthritis of left wrist Problem Pain, joint, M25.541 Active 5925436268986824 hand, right Problem Trigger middle M65.331 Active 472132309 finger of right hand Problem Primary M18.11 Active 16192629 osteoarthritis of first carpometacarpal joint of right hand ALLERGIES Allergen (clinical drug Drug/Non Drug Reaction Allergy Type Onset D ate Status ingredient) Allergy documented on EMR sulfamethoxazole / Bactrim([facility] Unknown Drug Allergy Act rufino trimethoprim Code:[address]-72) Sulfa Unknown Drug Allergy Active ENCOUNTERS from 1945 to 2020-04-28 Encounter Location Date Provider Diagnosis [facility] [address] [place], Rudy Olivier Carp al tunnel syndrome [facility] [address] of right [address] G56.01 ; [place], [place] Trigger middle finger [id number] of right hand M 65.331 ; Pain, joint, ruffin nd, right M25.541 ; Carpal tunnel syndrome of left wrist G56.02 an d Primary osteoar thritis of first carpometacarpal joint of right hand M 18.11 IMMUNIZATIONS Vaccine Route Administration Date Status Betamethasone [...] REASON FOR REFERRAL No Information VITAL SIGNS Height 67.5 in Mar, Weight 192 lbs Mar, Temperature 97.1 degrees Fahrenheit Mar, BMI 29.62 kg/m2 Mar, Blood pressure systolic 176 mm Hg Mar, Blood pressure diastolic 86 mm Hg Mar, MEDICATIONS Medication SIG (Take, Route, Start Date End Date Status Frequency, Duration) Vascepa Active Lisinopril 40 MG 1 tablet Orally Once a A ctive day for 30 day(s) Propranolol HCl 10 MG 1 tablet on an empty Active stomach Orally Twice a day for 30 day(s) Propranolol HCl Not-Taking Voltaren 1 % as directed Transdermal Dec, Acti ve apply small amount to affected area QID Tamsulosin HCl 0.4 MG Oral for 90 Active Montelukast Sodium 10 MG Oral for 90 Act rufino Glimepiride 4 MG Oral for 90 Active Fenoprofen Calcium Not-Takin g Pantoprazole Sodium Active Amlodipine Besylate 5 MG Oral for 90 Act rufino Aspir-81 81 MG 1 tablet Orally Once a Act rufino day for 30 day(s) Lidocaine Not-Taking Januvia 100 MG 1 tablet Orally Once a Act rufino day for 30 day(s) Diphendryl Active Atorvastatin Calcium 40 MG Oral for 90 N ot-Taking PROCEDURES No Information RESULTS No Results REASON FOR VISIT F/U RT HAND PAIN MEDICAL (GENERAL) HISTORY Type Description Date Medical History hypertension Medical History diabetes Surgical History right shoulder Surgical History tonsils Surgical History left shoulder Surgical History Endarterectomy Surgical History stent Goals Section No Information Health Concerns No Information MEDICAL EQUIPMENT No Information MENTAL STATUS No Information FUNCTIONAL STATUS No Information ASSESSMENTS Encounter Date Diagnosis Notes Mar, Trigger middle finger of right hand (ICD -10 - M65.331) Mar, Carpal tunnel syndrome of right wrist (I CD-10 - G56.01) Mar, Pain, joint, hand, right (ICD-10 - M25.5 41) Mar, 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 (ICD-10 - M18.11) Mar, Carpal tunnel syndrome of left wrist (IC D-10 - G56.02) PLAN OF TREATMENT Treatment Notes Assessment Notes Clinical Notes Carpal tunnel syndrome of right -patient failed conservative wrist treatment including corticosteroid injection-he reports continued pain that interferes with his ADLs-will proceed with right middle finger A1 ha release and right carpal tunnel release-f/u one week postop for suture removal Trigger middle finger of right hand -patient failed conserva tive treatment including corticosteroid injection-he reports continued pain that interferes with his ADLs-will proceed with right middle finger A1 ha release and right carpal tunnel release-f/u one week postop for suture removal Carpal tunnel syndrome of left wrist -continue with conserva tive treatment measures including night splints-will discuss operative treatment after he has recovered from his right hand surgery Primary osteoarthritis of first -proceed with conservative carpometacarpal joint of right hand treatment measures-use o f voltaren gel as needed Next Appt Details 1 week postop Reason: Provider Name:Rudy Montañoneelima 2020-05-08 0 2:00:00 PM, [address], [place], [address], Insurance Providers Payer Name Payer Address Payer Insured Patient Coverage Cover age End Phone Name Relationship to Start Date Yomi e Insured [employer] [address] [address] [phone] raul Tubbs MEDICARE [place] [address] [phone]
--- OUTSIDE RECORDS SUMMARY | 2020-05-02 06:08 | XMS REPORT ---
:1945 Author Organization [facility] Address [address], [facility] [address] [place] [address] Care Team Providers Name Role Phone Rudy Olivier Unavailable [phone] PROBLEMS Type Condition ICD9-CM [id number] Onset Condition SNOMED Code Notes Code Code Dates Status Problem Primary M16.12 Active 764653942 osteoarthritis of left hip Problem Carpal tunnel G56.01 Active 301811057943497 syndrome of right wrist Problem Carpal tunnel G56.02 Active 476250029010851 syndrome of left wrist Problem Primary M19.032 Active 140012400 osteoarthritis of left wrist Problem Pain, joint, M25.541 Active 2998359066576576 hand, right Problem Trigger middle M65.331 Active 006340542 finger of right hand Problem Primary M18.11 Active 90360838 osteoarthritis of first carpometacarpal joint of right hand ALLERGIES Allergen (clinical drug Drug/Non Drug Reaction Allergy Type Onset D ate Status ingredient) Allergy documented on EMR Sulfa Unknown Drug Allergy Active sulfamethoxazole / Bactrim([facility] Unknown Drug Allergy Act rufino trimethoprim Code:[address]-70) ENCOUNTERS from 1945 to 2020-04-07 Encounter Location Date Provider Diagnosis [facility] [address] [place], Rudy Olivier Trig luba middle finger [facility] [address] of right [address]o d M65.331 ; [place], [place] Carpal tunnel s yndrome [address] of right wrist G56.01 ; Pain, joint, ruffin nd, right M25.541 [...] VITAL SIGNS Height 67.5 in Mar, Weight 185.8 lbs Mar, Temperature 97.3 degrees Fahrenheit Mar, BMI 28.67 kg/m2 Mar, Blood pressure systolic 126 mm Hg Mar, Blood pressure diastolic 74 mm Hg Mar, MEDICATIONS Medication SIG (Take, Route, Start Date End Date Status Frequency, Duration) Propranolol HCl Not-Taking Pantoprazole Sodium Active Tamsulosin HCl 0.4 MG Oral for 90 Active Amlodipine Besylate 5 MG Oral for 90 Act rufino Lisinopril 40 MG 1 tablet Orally Once a A ctive day for 30 day(s) Fenoprofen Calcium Not-Takin g Aspir-81 81 MG 1 tablet Orally Once a Act rufino day for 30 day(s) Voltaren 1 % as directed Transdermal Dec, Acti ve apply small amount to affected area QID Propranolol HCl 10 MG 1 tablet on an empty Active stomach Orally Twice a day for 30 day(s) Lidocaine Not-Taking Januvia 100 MG 1 tablet Orally Once a Act rufino day for 30 day(s) Atorvastatin Calcium 40 MG Oral for 90 N ot-Taking Glimepiride 4 MG Oral for 90 Active Vascepa Active Montelukast Sodium 10 MG Oral for 90 Act rufino Diphendryl Active PROCEDURES No Information RESULTS No Results REASON [...] Information ASSESSMENTS Encounter Date Diagnosis Notes Mar, Carpal tunnel syndrome of right wrist (I CD-10 - G56.01) Mar, Trigger middle finger of right hand (ICD -10 - M65.331) Mar, Pain, joint, hand, right (ICD-10 - M25.5 41) Mar, 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 (ICD-10 - M18.11) Mar, Carpal tunnel syndrome of left wrist (IC D-10 - G56.02) PLAN OF TREATMENT Treatment Notes Assessment Notes Clinical Notes Trigger middle finger of right hand -patient failed conserva tive treatment including corticosteroid injection-he reports continued pain that interferes with his ADLs-will proceed with right middle finger A1 ha release and right carpal tunnel release-await medical clearance Carpal tunnel syndrome of right -patient failed conservative wrist treatment including corticosteroid injection-he reports continued pain that interferes with his ADLs-will proceed with right middle finger A1 ha release and right carpal tunnel release-await medical clearance-recommended bilateral carpal tunnel wrist splints; patient was going to try and obtain from a friend Carpal tunnel syndrome of left wrist -patient failed conserv ative treatment including corticosteroid injection-he reports continued pain that interferes with his ADLs-will proceed with right middle finger A1 ha release and right carpal tunnel release-await medical clearance-recommended bilateral carpal tunnel wrist splints; patient was going to try and obtain from a friend Primary osteoarthritis of first -proceed with conservative carpometacarpal joint of right hand treatment measures-use o f voltaren gel as needed Next Appt Details 1 WEEK POST OP Reason: Insurance Providers Payer Name Payer Address Payer Insured Patient Coverage Cover age End Phone Name Relationship to Start Date Yomi e Insured [employer] [address] [address] [phone] raul uTbbs [place]IC[place] [address] [phone]
--- OUTSIDE RECORDS SUMMARY | 2020-05-02 06:08 | XMS REPORT ---
:1945 Author Organization [facility] Address [address] [place] [address] Care Team Providers Name Role Phone Rudy Olivier Unavailable [phone] PROBLEMS Type Condition ICD9-CM [id number] Onset Condition SNOMED Code Notes Code Code Dates Status Problem Trigger middle M65.331 Active 664146535 finger of right hand Problem Primary M18.11 Active 30306182 osteoarthritis of first carpometacarpal joint of right hand Problem Primary M16.12 Active 291078406 osteoarthritis of left hip Problem Primary M19.032 Active 267136384 osteoarthritis of left wrist Problem Pain, joint, M25.541 Active 6497832550290120 hand, right ALLERGIES Allergen (clinical drug Drug/Non Drug Reaction Allergy Type Onset D ate Status ingredient) Allergy documented on EMR Sulfa Unknown Drug Allergy Active sulfamethoxazole / Bactrim([facility] Unknown Drug Allergy Act rufino trimethoprim Code:[address]-50) ENCOUNTERS from 1945 to 2020-03-25 Encounter Location Date Provider Diagnosis [facility] [address] Feb, Juliane Olivier [facility] [place] [address] IMMUNIZATIONS Vaccine Route Administration Date Status Betamethasone [...] Information RESULTS No Results REASON FOR VISIT EMG results MEDICAL (GENERAL) HISTORY Type Description Date Medical [...] [address], [place], [address], Insurance Providers Payer Name Payer Address Payer Insured Patient Coverage Cover age End Phone Name Relationship to Start Date Yomi e Insured [employer] [address] [address] [phone] Arley, self [place]IC[place] [address] [phone]
[2020-05-02] MEDS ORDERED: CEFAZOLIN/SWI 1gm 1 GM/10 ML SYR ONE (06:31)
[2020-05-02] MEDS ORDERED: NA CHLORIDE 0.9% 1,000 ML ONE (06:31)
[2020-05-02] MEDS ORDERED: MIDAZOLAM HCL 2 MG/2 ML INJ ONE (07:19)
[2020-05-02] MEDS ORDERED: FENTANYL CITR 100 MCG/2 ML ONE (07:19)
[2020-05-02] MEDS ORDERED: LIDOCAINE 2% MPF 5 ML VIAL ONE (07:19)
[2020-05-02] MEDS ORDERED: KETOROLAC 30 MG/ML INJ ONE (07:20)
[2020-05-02] MEDS ORDERED: propofoL 200 MG/20 ML VIAL IV ONE ×3 (07:20→08:53)
[2020-05-02] MEDS ORDERED: dexAMETHasone 4 MG/ML VIAL ONE (07:20)
[2020-05-02] MEDS ORDERED: NS 0.9% VIAL 40 ML ONE (07:22)
[2020-05-02] MEDS ORDERED: BUPIVACAINE 0.5% PF 10 ML VIAL ONE (07:31)
[2020-05-02] MEDS ORDERED: HYDRALAZINE HCL 20 MG/ML VIAL ONE (08:05)
--- NOTE | 2020-05-02 09:04 | P.BOP ---
Preoperative diagnosis: right carpal tunnel syndrome Postoperative diagnosis: right middle finger trigger digit Primary procedure: right open carpal tunnel release Secondary procedure: right middle finger A1 ha release Tie Sawyer: NONE,NONE Estimated blood loss: 5 cc Specimen: none Findings: see dictation Anesthesia: General Complications: None Implants: none Fluids & blood products: per anesthesia record Transferred to: Recovery Room Condition: Good
[2020-05-02 09:52] VITALS: TEMP 97.6; O2SAT 100
[2020-05-02 09:53] VITALS: BP 111/48
--- NOTE | 2020-05-07 11:48 | OP ---
Date of Procedure: 05/02/2020 Surgeon: Rudy Olivier MD Preoperative Diagnoses: 1.Right carpal tunnel syndrome. 2.Right middle finger trigger digit. Postoperative Diagnoses: 1.Right carpal tunnel syndrome. 2.Right middle finger trigger digit. Procedure Performed: 1.Right open carpal tunnel release. 2.Right middle finger A1 ha release. Anesthesia: Caio block. Estimated Blood Loss: Less than 5 cc. Complications: None. Implants: None. Indication For Procedure: Robert is a 74-year-old male, who presented to my clinic with signs sympto ms consistent with right carpal tunnel syndrome and right middle finger trigger digit. He failed con servative treatment measures and had EMG findings consistent with carpal tunnel syndrome. I discusse d with the patient at length risks and benefits associated with operative and nonoperative treatment. He expressed understanding and elected to proceed with operative treatment. Description Of Procedure: After informed consent was obtained, the patient was identified in the pre operative holding area. The right upper extremity was marked. The patient was then brought back to the operating room, transferred to the operative table in a supine fashion, placed under [place] block a nesthesia. The right upper extremity was then prepped and draped in usual sterile fashion. A time-o ut was initiated. The correct patient and procedure were confirmed and identified. The patient did receive his preoperative prophylactic antibiotics. Approximately 3 cm longitudinal incision was made just ulnar to the thenar crease along in line with the fourth digit at the radial side of the fourth digit. Dissection was then taken down to the palmar fascia. A Raven elevator was placed deep to th e palmar fascia to protect the median nerve at all times. The transverse carpal ligament was then re leased using a 15 blade. Again, protecting the median nerve at all times with a Raven elevator and t he remaining fascial bands were then released using a smooth tip Metzenbaum scissors that were aim briggs perficially to again avoid the median nerve at all times. The wound was then irrigated thoroughly wi th normal saline. Next, attention was taken to the middle finger A1 ha. Approximately, a 1 cm i ncision was made centered over the A1 ha. Dissection was taken down at the A1 ha using Alcon lowe. A 15 blade was then used to release the A1 ha and portion of the tendon sheath was excised t o minimize risk of recurrence. The tendon was then brought through out the incision under full excur ernesto of the tendon without any triggering noted. The wounds were then irrigated thoroughly with norm al saline. Skin was approximated using a 5-0 Prolene. Sterile dressings were applied. Tourniquet w as let down. The patient was awakened and transferred to PACU in stable condition. Postoperative Plan: The patient will be nonweightbearing of his right upper extremity. He will foll ow up in 1 week for suture removal. SKY/KARYN Voice ID: [id number] Report ID: [id number]
== END 2020-05-02 09:30 | disposition home or self-care (01) ==
LOC: OR 06:05
PROVIDERS: ATTEND Orthopaedic Surgery Sports Medicine
PROC: 0LN70ZZ Release Right Hand Tendon, Open Approach (ICD-10-PCS; principal; 2020-05-02 07:30)
PROC: 01N50ZZ Release Median Nerve, Open Approach (ICD-10-PCS; 2020-05-02 07:30)
DX: G56.01 Carpal tunnel syndrome, right upper limb (principal); M65.331 Trigger finger, right middle finger; I10 Essential (primary) hypertension; E11.9 Type 2 diabetes mellitus without complications; M18.11 Unilateral primary osteoarthritis of first carpometacarpal joint, right hand; G56.02 Carpal tunnel syndrome, left upper limb; Z20.828 Contact with and (suspected) exposure to other viral communicable diseases; Z88.1 Allergy status to other antibiotic agents; Z88.2 Allergy status to sulfonamides
CPT/HCPCS: 93005; 85025; 80048; 36415; 85610; 82947; 85730; 71046; 26055; 64721; U0002; J0360; J2704 ×3; J2250; J3010; J0690; J7030; J1100

== ENCOUNTER 2021-04-04 08:23 | Emergency (ER) | payer OTHER ==
--- NOTE | 2021-04-04 09:40 | RAD REPORT ---
EXAM DESCRIPTION: CT - CTHCSPWOC - 04/04/2021 9:11 am CLINICAL HISTORY: Trauma, head and neck injury. fall, head and face injury COMPARISON: No comparisons TECHNIQUE: Axial 5 mm thick images of the head were obtained. Axial 2 mm thick images of the cervical spine were obtained with sagittal and coronal reconstruction images generated and reviewed. All CT scans are performed using dose optimization technique as appropriate and may include automated exposure control or mA/KV adjustment according to patient size. FINDINGS: CT HEAD WITHOUT CONTRAST: No acute hemorrhage, hydrocephalus or extra-axial collection is identified.Mild brain atrophy is pres ent.No areas of brain edema or midline shift. Mild fluid is present both maxillary antra, ethmoid air cells and sphenoid sinus. Significant fluid i s present in the nasal cavity.Please refer to dedicated CT face study for more details.The calvarium is intact. CT CERVICAL SPINE WITHOUT CONTRAST: No fracture or subluxation.Moderate cervical degenerative changes.No prevertebral soft tissues swelli ng is identified. IMPRESSION: No acute intracranial or cervical spine findings.
--- NOTE | 2021-04-04 09:43 | RAD REPORT ---
EXAM DESCRIPTION: CT - CTFB CLINICAL HISTORY: FACIAL PAIN Trauma, facial pain and swelling. COMPARISON: No comparisons TECHNIQUE: Axial 2 mm thick images of the face were obtained with sagittal and coronal reconstructio n images. All CT scans are performed using dose optimization technique as appropriate and may include automated exposure control or mA/KV adjustment according to patient size. FINDINGS: Significant soft tissue opacification of the nasal cavities is seen extending to the nasop harynxmild fluid is seen the paranasal sinus is. No facial bone fracture is evident. There is slight rightward deviation of the anterior nasal septum present. IMPRESSION: Negative for facial bone fracture. Mild distortion anterior nasal septum could be related to traumatic injury. Significant bilateral soft tissue opacification filling the nasal cavity to the level of the nasophar ynx. Mild fluid is present in paranasal sinuses bilaterally.
--- NOTE | 2021-04-04 09:48 | RAD REPORT ---
EXAM DESCRIPTION: RAD - Elbow Right 3 View - 04/04/2021 9:43 am CLINICAL HISTORY: PAIN COMPARISON: No comparisons FINDINGS: Minimally displaced fracture of the olecranon is present. Mildly impacted comminuted fract ure of the radial head and neck also seen. Moderate adjacent soft tissue swelling. No dislocation.
--- NOTE | 2021-04-04 09:50 | RAD REPORT ---
EXAM DESCRIPTION: RAD - Shoulder Right 2 View - 04/04/2021 9:43 am CLINICAL HISTORY: fall;Pain COMPARISON: No comparisons FINDINGS: Azot-gy-hpyxkqmv AC joint and glenohumeral joint arthritic changes are present. No acute f racture or dislocation is evident.
[2021-04-04] MEDS ORDERED: ACETAMINOPHEN 325 MG TABLET ONE (11:22)
[2021-04-04] MEDS ORDERED: OXYMETAZOLINE HCL 0.05% 15ML NAS ONE (11:23)
--- NOTE | 2021-04-04 11:24 | RAD REPORT ---
EXAM DESCRIPTION: RAD - Hand Left 3 View - 04/04/2021 10:46 am CLINICAL HISTORY: PAIN COMPARISON: No comparisons FINDINGS: Osteopenia is noted. Mild to moderate multi-joint arthritic changes are present. No acute fracture seen.
--- NOTE | 2021-04-04 13:51 | EDPHYS ---
Physician Documentation [facility] Name: Robert Tubbs Age: 75 yrs Sex: Male : 1945 Arrival Date: 04/04/2021 Time: 08:24 Bed 19 Private MD: ED Physician Marvel Gar HPI: 04/04 08:34 This 75 yrs old Male presents to ER via EMS with complaints of Fall, head rn injury. 08:34 The patient or guardian reports abrasion, injury, pain, swelling. The complaints affect rn the nose, mouth and chin. Onset: The symptoms/episode began/occurred just prior to arrival. Associated signs and symptoms: Loss of consciousness: This patient did not experience any loss of consciousness. Pertinent negatives: the patient has not experienced a loss of conciousness, biting tongue, headache, seizure, vomiting. Severity of symptoms: At their worst the symptoms were mild, in the emergency department the symptoms are unchanged. The patient has not experienced similar symptoms in the past. The patient has not recently seen a physician. Patient reports got caught up in a cord while walking, fell forward, face had ground, no LOC. Taken off Plavix recently only takes aspirin. No vomiting. No focal neurological deficit. Reports pain to face mainly chin lip and nose. Also reports pain to right elbow.. Historical: - Allergies: 08:28 SHELLFISH; es2 08:28 Bactrim; es2 - Immunization history:: Adult Immunizations. - Social history:: Smoking status: Patient denies any tobacco usage or history of. - Family history:: not pertinent. - Hospitalizations: : No recent hospitalization is reported. ROS: 08:34 Constitutional: Negative for fever, chills, and weight loss, Eyes: Negative for injury, rn pain, redness, and discharge, ENT: Positive injury and pain to the nose and lips Neck: Negative for injury, pain, and swelling, Cardiovascular: Negative for chest pain, palpitations, and edema, Respiratory: Negative for shortness of breath, cough, wheezing, and pleuritic chest pain, Abdomen/GI: Negative for abdominal pain, nausea, vomiting, diarrhea, and constipation, Back: Negative for injury and pain, MS/Extremity: Positive for injury and swelling to right elbow Skin: Positive for abrasions to face Neuro: Negative for headache, weakness, numbness, tingling, and seizure. Exam: 08:34 Constitutional: This is a well developed, well nourished patient who is awake, alert, rn and in no acute distress. Head/Face: Normocephalic, moderate depth abrasions to chin lower and upper lips. Mild swelling of nose and blood coming from left nare Eyes: Pupils equal round and reactive to light, extra-ocular motions intact. Periorbital areas with no swelling, redness, or edema. ENT: No intraoral laceration or bleeding. Mild loosening/subluxation of right upper middle tooth. Mild swelling of nose with ecchymosis and gauze packed into the left nare. Neck: Trachea midline, no masses palpated Cardiovascular: Regular rate and rhythm. No pulse deficits. Respiratory: No increased work of breathing, no retractions or nasal flaring. Abdomen/GI: Soft, non-tender Skin: Warm, dry MS/ Extremity: Pulses equal, no cyanosis. Neuro: Awake and alert, GCS 15, oriented to person, place, time, and situation. Cranial nerves II-XII grossly intact. Motor strength 5/5 in all extremities. Sensory grossly intact. Vital Signs: 08:25 BP 132 / 64; Pulse 59; Resp 17; Temp 97.7; Pulse Ox 100% on R/A; Weight 80.74 kg; es2 Height 5 ft. 8 in. (172.72 cm); 11:18 BP 121 / 53; Pulse 63; Resp 19; Pulse Ox 98% ; ch5 14:03 BP 137 / 56; Pulse 56; Resp 17; Pulse Ox 98% on R/A; es2 08:25 Body Mass Index 27.06 (80.74 kg, 172.72 cm) es2 [place] Coma Score: 08:34 Eye Response: spontaneous(4). Verbal Response: oriented(5). Motor Response: obeys rn commands(6). Total: 15. 13:46 Eye Response: spontaneous(4). Verbal Response: oriented(5). Motor Response: obeys rn commands(6). Total: 15. MDM: 08:24 Patient medically screened. rn 13:46 Differential diagnosis: Contusion of Hematoma on Intracranial bleed- Concussion rn cerebral contusion. Data reviewed: vital signs, nurses notes, radiologic studies, CT scan, plain films, and as a result, I will discharge patient. Data interpreted:. Counseling: I had a detailed discussion with the patient and/or guardian regarding: the historical points, exam findings, and any diagnostic results supporting the discharge/admit diagnosis, radiology results, the need for outpatient follow up, to return to the emergency department if symptoms worsen or persist or if there are any questions or concerns that arise at home. Response to treatment: the patient's symptoms have markedly improved after treatment, and as a result, I will discharge patient. ED course: Patient no longer with epistaxis. Has resolved. Right elbow in a splint and sling. Other x-rays grossly negative. CT head C-spine and face negative. 04/04 08:33 Order name: CT Facial Bones W/O Con; Complete Time: 09:52 rn 04/04 08:33 Order name: XRAY Elbow RIGHT 3 view; Complete Time: 09:52 rn 04/04 08:33 Order name: CT Head C Spine; Complete Time: 09:52 rn 04/04 09:17 Order name: XRAY Shoulder RIGHT 2 view; Complete Time: 09:52 rn 04/04 10:05 Order name: XRAY Hand LEFT 3 View; Complete Time: 11:25 rn 04/04 08:33 Order name: Wound Care; Complete Time: 08:54 rn 04/04 09:52 Order name: Splint - Elbow - Posterior; Complete Time: 12:09 rn 04/04 10:05 Order name: Sling; Complete Time: 12:09 rn Administered Medications: 10:09 CANCELLED (Physician Discretion): Oxymetazoline Drops (0.05 %) 1 sprays Intranasal once es2 Disposition Summary: 04/04/21 13:51 Discharge Ordered Location: Home rn Problem: new rn Symptoms: have improved rn Condition: Stable rn Diagnosis - Epistaxis rn - Nondisplaced fracture of olecranon process with intraarticular extension of right rn ulna, initial encounter for closed fracture - Nondsiplaced right radial head fracture rn Followup: rn - With: Rudy Olivier MD - When: As needed - Reason: Recheck today's complaints, Re-evaluation by your physician Discharge Instructions: - Discharge Summary Sheet rn - Cast or Splint Care, Adult rn - Olecranon Fracture rn - Nosebleed, Adult rn - Radial Head Elbow Fracture Rehab-SportsMed rn Forms: - Medication Reconciliation Form rn - Thank You Letter rn - Antibiotic box turner - Prescription Opioid Use rn Signatures: Dispatcher [employer] EDMarvel Mcdonough MD MD rn Smith, Elizabeth, RN RN es2 Corrections: (The following items were deleted from the chart) 10:09 09:53 Oxymetazoline Drops (0.05 %) 1 sprays Intranasal once ordered. rn es2
--- NOTE | 2021-04-04 13:51 | ER ---
Nurse's Notes [facility] Name: Robert Tubbs Age: 75 yrs Sex: Male : 1945 Arrival Date: 04/04/2021 Time: 08:24 Bed 19 Private MD: Diagnosis: Epistaxis;Nondisplaced fracture of olecranon process with intraarticular extension of right ulna, initial encounter for closed fracture;Nondsiplaced right radial head fracture Presentation: 04/04 08:26 Chief complaint: EMS states: Pt tripped on extension cord and fell face first. Abrasion es2 to R side knee and reports R elbow pain. Busted lip \T\ chin, active bleeding from L nostril. AAOx4. Denies LOC. Gave quick clot, on 2nd round. Denies blood thinner, takes daily asa. Coronavirus screen: Client denies travel out of the [place] in the last 14 days. Ebola Screen: Patient negative for fever greater than or equal to 101.5 degrees Fahrenheit, and additional compatible Ebola Virus Disease symptoms Patient denies exposure to infectious person. Patient denies travel to an Ebola-affected area in the 21 days before illness onset. No symptoms or risks identified at this time. Initial Sepsis Screen: Does the patient meet any 2 criteria? No. Patient's initial sepsis screen is negative. Does the patient have a suspected source of infection? No. Patient's initial sepsis screen is negative. Risk Assessment: Do you want to hurt yourself or someone else? Patient reports no desire to harm self or others. Onset of symptoms was April 04, 2021. 08:26 Method Of Arrival: EMS: [facility] es2 08:26 Acuity: SYMONE 3 es2 Triage Assessment: 08:28 General: Appears uncomfortable, well developed, well nourished, Behavior is calm, es2 cooperative, appropriate for age. 08:53 Pain: Complains of pain in right elbow Pain currently is 5 out of 10 on a pain scale. es2 Historical: - Allergies: 08:28 SHELLFISH; es2 08:28 Bactrim; es2 - Immunization history:: Adult Immunizations. - Social history:: Smoking status: Patient denies any tobacco usage or history of. - Family history:: not pertinent. - Hospitalizations: : No recent hospitalization is reported. Screenin:30 Abuse screen: Denies threats or abuse. Denies injuries from another. Nutritional es2 screening: No deficits noted. Tuberculosis screening: No symptoms or risk factors identified. Fall Risk Fall in past 12 months (25 points). IV access (20 points). Mental Status- Oriented to own ability (0 pts). Assessment: 08:55 Reassessment: No changes from previously documented assessment. ch5 Vital Signs: 08:25 BP 132 / 64; Pulse 59; Resp 17; Temp 97.7; Pulse Ox 100% on R/A; Weight 80.74 kg; es2 Height 5 ft. 8 in. (172.72 cm); 11:18 BP 121 / 53; Pulse 63; Resp 19; Pulse Ox 98% ; ch5 14:03 BP 137 / 56; Pulse 56; Resp 17; Pulse Ox 98% on R/A; es2 08:25 Body Mass Index 27.06 (80.74 kg, 172.72 cm) es2 [place] Coma Score: 08:34 Eye Response: spontaneous(4). Verbal Response: oriented(5). Motor Response: obeys rn commands(6). Total: 15. 13:46 Eye Response: spontaneous(4). Verbal Response: oriented(5). Motor Response: obeys rn commands(6). Total: 15. ED Course: 08:24 Patient arrived in ED. ll1 08:24 Marvel Gar MD is Attending Physician. rn 08:25 Rosy Hendricks, RANJANA is Primary Nurse. es2 08:28 Triage completed. es2 08:28 Maintain EMS IV. Dressing intact. Site clean \T\ dry. es2 08:30 Arm band placed on. es2 08:30 Patient has correct armband on for positive identification. Bed in low position. Call es2 light in reach. Side rails up X2. 09:11 CT Facial Bones W/O Con In Process Unspecified. EDMS 09:11 CT Head C Spine In Process Unspecified. EDMS 09:43 XRAY Elbow RIGHT 3 view In Process Unspecified. EDMS 09:43 XRAY Shoulder RIGHT 2 view In Process Unspecified. EDMS 10:46 XRAY Hand LEFT 3 View In Process Unspecified. EDMS 12:00 Ruddy wrap to right elbow and right wrist Orthoglass splint: posterior splint elbow to tw2 RIGHT arm. CMS intact. secured with ruddy wrap. pt placed in sling. pt tolerated well. Sling applied to right arm. 13:48 Rudy Olivier MD is Referral Physician. rn 14:03 No provider procedures requiring assistance completed. IV discontinued, intact, es2 bleeding controlled, No redness/swelling at site. Pressure dressing applied. Administered Medications: 10:09 CANCELLED (Physician Discretion): Oxymetazoline Drops (0.05 %) 1 sprays Intranasal once es2 Outcome: 13:51 Discharge ordered by . rn 14:03 Discharged to home ambulatory. es2 14:03 Condition: stable 14:03 Discharge instructions given to patient, family, Instructed on discharge instructions, follow up and referral plans. Demonstrated understanding of instructions, follow-up care. 14:03 Patient left the ED. es2 Signatures: Dispatcher [employer] EDMS Marvel Gar MD MD rn Wise, Tara, RN RN tw2 Brian Pollock RN RN ll1 Kalpesh Bermudez RN RN ch5 Rosy Hendricks RN RN es2 Corrections: (The following items were deleted from the chart) 12:12 12:11 Orthoglass splint: tw2 tw2
[2021-04-04 14:20] VITALS: TEMP 97.5
[2021-04-04 14:21] VITALS: BP 154/110; O2SAT 97
== END 2021-04-04 14:03 | disposition home or self-care (01) ==
LOC: ER 08:23
DX: S52.124A Nondisplaced fracture of head of right radius, initial encounter for closed fracture (principal); S52.034A Nondisplaced fracture of olecranon process with intraarticular extension of right ulna, initial encounter for closed fracture; R04.0 Epistaxis; W01.0XXA Fall on same level from slipping, tripping and stumbling without subsequent striking against object, initial encounter; Z88.1 Allergy status to other antibiotic agents; Z91.013 Allergy to seafood
CPT/HCPCS: 70450; 70486; 72125; 76377; 99283

== ENCOUNTER 2024-04-16 18:14 | Emergency (ER) | payer OTHER ==
[2024-04-16 19:38] LABS: Absolute Lymphocytes (CBC) 0.3 K/uL (0.7-4.9); Absolute Monocytes 0.1 K/uL (0.1-1.3); Absolute Neutrophil 0.3 K/uL (1.8-8.0); Eosinophils % 4.7 % (0-4.4); Hematocrit 29.2 % (39.6-49.0); Hemoglobin 10.1 g/dL (13.6-17.9); Lymphocytes % 41.4 % (15.3-44.8); MCHC 34.7 g/dL (32.0-36.0); MCV 103.9 fL (80-100); MPV 9.3 fL (7.6-11.3); Monocytes % 8.3 % (3.3-12.3); Neutrophils % 43.6 % (41.7-73.7); Platelets 34 thou/uL (152-406); RBC Red Blood Cell Count 2.82 M/uL (4.33-5.43); Red Cell Distribution Width 18.9 % (12.1-15.2)
[2024-04-16 19:49] LABS: Nucleated Red Blood Cells % 1.3 % (0-0)
[2024-04-16 20:17] LABS: PT Prothrombin Time 13.1 SECONDS (9.4-12.5); PTT, Activated Partial Thromb 44.3 SECONDS (24.3-36.9); Protime INR 1.18
[2024-04-16 21:05] LABS: Differential Total Cells Count 100
[2024-04-16 21:06] LABS: Band Neutrophils 2 % (0-1); Lymphocytes 45 % (15-42); Monocytes 4 % (0-10); Segmented Neutrophils 42 % (40-80)
[2024-04-16 21:10] LABS: Eosinophils 6 % (0-3); Nucleated Red Blood Cells 2 /100WBC; Platelet Estimate DECR
[2024-04-16 21:11] LABS: Anisocytosis 1+; Blood Morphology Comment NOTED (NOT SEEN); Polychromasia 1+
--- NOTE | 2024-04-16 23:29 | ER ---
Nurse's Notes [facility] Name: Robert Tubbs Age: 78 yrs Sex: Male : 1945 Arrival Date: 04/16/2024 Time: 18:14 Bed 4 Private MD: Diagnosis: Thrombocytopenia, unspecified;Myelodysplastic syndrome with thrombocytopenia, concern for low hemoglobin, generalized weakness Presentation: 04/16 18:31 Chief complaint: Patient states: Weakness, fatigue and bruising easily. Sent in for ll1 blood transfusion by Dr. Park. Coronavirus screen: Client denies travel out of the [place] in the last 14 days. At this time, the client does not indicate any symptoms associated with coronavirus-19. Ebola Screen: Patient denies travel to an Ebola-affected area in the 21 days before illness onset. Initial Sepsis Screen: Does the patient meet any 2 criteria? No. Patient's initial sepsis screen is negative. Does the patient have a suspected source of infection? No. Patient's initial sepsis screen is negative. Risk Assessment: Do you want to hurt yourself or someone else? Patient reports no desire to harm self or others. Onset of symptoms was April 16, 2024. 18:31 Method Of Arrival: Ambulatory ll1 18:31 Acuity: SYMONE 3 ll1 Triage Assessment: 18:31 General: Appears uncomfortable, Behavior is calm, cooperative, appropriate for age, ll1 Reports fatigue for. Pain: Denies pain. Neuro: Reports weakness needs blood transfusion. Derm: Reports bruising easily. Historical: - Allergies: 18:30 SHELLFISH; ll1 18:30 Bactrim; ll1 - PMHx: 18:30 ascites; Diabetes - NIDDM; esophageal varicies; cirrhosis of liver; High Cholesterol; ll1 Hypertension; Portal Hypertension; - Immunization history:: Adult Immunizations up to date. - Infectious Disease History:: Denies. - Social history:: Smoking status: Patient denies any tobacco usage or history of. - Family history:: not pertinent. Screenin:30 [facility] ED Fall Risk Assessment (Adult) History of falling in the last 3 months, bm8 including since admission No falls in past 3 months (0 pts) Confusion or Disorientation No (0 pts) Intoxicated or Sedated No (0 pts) Impaired Gait No (0 pts) Mobility Assist Device Used No (0 pt) Altered Elimination No (0 pt) Score/Fall Risk Level 0 - 2 = Low Risk Oriented to surroundings, Maintained a safe environment, Educated pt \T\ family on fall prevention, incl call for assistance when getting out of bed, Assessed \T\ reinforced patient's understanding of fall precautions, Hourly rounding (assess needs \T\ fall precautionary measures) done, Used ambulatory aids as needed (educated on \T\ assisted with), Used gait belt as appropriate. Abuse screen: Denies threats or abuse. Nutritional screening: No deficits noted. Tuberculosis screening: No symptoms or risk factors identified. Assessment: 19:30 Reassessment: Patient appears in no apparent distress at this time. Patient and/or bm8 family updated on plan of care and expected duration. Pain level reassessed. Patient is alert, oriented x 3, equal unlabored respirations, skin warm/dry/pink. General: Appears in no apparent distress. comfortable, Behavior is calm, cooperative, appropriate for age. Pain: Denies pain. Cardiovascular: No deficits noted. Heart tones S1 S2 present Capillary refill < 3 seconds Patient's skin is warm and dry. Respiratory: No deficits noted. Airway is patent Trachea midline Respiratory effort is even, unlabored, Respiratory pattern is regular, symmetrical, Breath sounds are clear bilaterally. GI: Abdomen is round distended, Last BM was April 15, 2024. Bowel sounds hypoactive in right upper quadrant, left upper quadrant, right lower quadrant and left lower quadrant Abd is soft and non tender Reports bloating. : No signs and/or symptoms were reported regarding the genitourinary system. EENT: No signs and/or symptoms were reported regarding the EENT system. Derm: No signs and/or symptoms reported regarding the dermatologic system. Musculoskeletal: No signs and/or symptoms reported regarding the musculoskeletal system. 22:09 Reassessment: Patient appears in no apparent distress at this time. Patient and/or bm8 family updated on plan of care and expected duration. Pain level reassessed. Patient is alert, oriented x 3, equal unlabored respirations, skin warm/dry/pink. Patient denies pain at this time. Patient states feeling better. Patient states symptoms have improved. Vital Signs: 18:31 BP 155 / 62; Pulse 64; Resp 18; Temp 97.9; Pulse Ox 100% ; Weight 82.55 kg; Height 5 ll1 ft. 8 in. ; Pain 0/10; 19:30 BP 156 / 84; Pulse 65; Resp 18; Temp 97.9; Pulse Ox 99% on R/A; Pain 0/10; bm8 22:09 BP 134 / 53; Pulse 66; Resp 17; Temp 97.9; Pulse Ox 98% on R/A; Pain 0/10; bm8 23:43 BP 125 / 45; Pulse 60; Resp 18 S; Pulse Ox 97% on R/A; br2 18:31 Body Mass Index 27.67 (82.55 kg, 172.72 cm) ll1 18:31 Pain Scale: Adult ll1 19:30 Pain Scale: Adult bm8 22:09 Pain Scale: Adult bm8 [place] Coma Score: 19:30 Eye Response: spontaneous(4). Motor Response: obeys commands(6). Verbal Response: bm8 oriented(5). Total: 15. 22:09 Eye Response: spontaneous(4). Motor Response: obeys commands(6). Verbal Response: bm8 oriented(5). Total: 15. 10/22 06:23 Eye Response: spontaneous(4). Motor Response: obeys commands(6). Verbal Response: sp4 oriented(5). Total: 15. ED Course: 04/16 18:18 Patient arrived in ED. mg5 18:32 Triage completed. ll1 18:32 Arm band placed on Patient placed in an exam room, on a stretcher. ll1 18:34 Keara Bolanos FNP-C is [facility]. kb 18:34 Allen Leon MD is Attending Physician. kb 19:30 Lai Galdamez, RANJANA is Primary Nurse. bm8 19:30 Patient has correct armband on for positive identification. Placed in gown. Bed in low bm8 position. Call light in reach. Side rails up X 1. Provided Education on: Blood Transfusion. Client placed on continuous cardiac and pulse oximetry monitoring. NIBP monitoring applied. Pulse ox on. NIBP on. Door closed. Noise minimized. Visitors limited. Warm blanket given. Pillow given. Verbal reassurance given. Head of bed elevated. 19:30 No provider procedures requiring assistance completed. Initial lab(s) drawn, by makenzie mckinley sent to lab. T\T\S collected, blood band applied to patient. Inserted saline lock: 20 gauge in right antecubital area, using aseptic technique. Blood collected. Flushed with 10 mL NS. Patient maintains SpO2 saturation greater than 95% on room air. 19:39 Allen Leon MD is Attending Physician. bo1 19:58 Notified ED physician of a critical lab result(s). 0.80 WBC. bm8 20:02 Lab(s) recollected, by ED staff, sent to lab. bm8 20:03 Attending Physician role handed off by Allen Leon MD sp4 20:03 Steve Ochoa MD is Attending Physician. sp4 23:27 Sasha Flowers MD is Referral Physician. sp4 23:41 IV discontinued, intact, bleeding controlled, No redness/swelling at site. Pressure br2 dressing applied. Administered Medications: No medications were administered Medication: 19:30 VIS not applicable for this client. bm8 Outcome: 23:29 Discharge ordered by MD. sp4 23:41 Discharged to home via wheelchair, br2 23:41 Condition: stable 23:41 Discharge instructions given to patient, family, Instructed on discharge instructions, follow up and referral plans. Demonstrated understanding of instructions, follow-up care, medications, Prescriptions given X 1, 23:44 Patient left the ED. br2 Signatures: Keara Bolanos, CRISTINA FRANCISCOP-Brian Casiano, RN RN ll1 Steve Ochoa MD MD sp4 Rosa Elena Franklin mg5 Allen Leon MD MD bo1 Lai Galdamez, RN RN bm8 Iram Ruby, RN RN br2 Corrections: (The following items were deleted from the chart) 19:59 19:58 Notified ED physician of a critical lab result(s). 0.88 WBC bm8 bm8
--- NOTE | 2024-04-16 23:29 | EDPHYS ---
Physician Documentation [facility] Name: Robert Tubbs Age: 78 yrs Sex: Male : 1945 Arrival Date: 04/16/2024 Time: 18:14 Bed 4 Private MD: ED Physician Steve Ochoa HPI: 04/16 20:03 This 78 yrs old Male presents to ER via Ambulatory with complaints of Sent By bernarda CASTRO 20:06 PMH - 16:57 amlodipine 5 mg tab 1 tab once daily; aspirin 81 mg Oral TbEC 2 tabs twice sp4 a day; clopidogrel 75 mg Oral tab 1 tab once daily; fenofibrate 150 mg Oral cap 1 cap once daily; glimepiride 4 mg Oral tab 1 tab once daily; Januvia 50 mg Oral tab 2 tabs once daily; lisinopril 40 mg Oral tab 1 tab once daily; montelukast 10 mg Oral tab 1 tab once daily; propranolol 10 mg Oral tab 1 tab twice a day; tamsulosin 0.4 mg Oral cp24 1 cap once daily; lactulose 10 gram/15 mL Oral soln 30 mL once daily;. 04/17 06:21 Patient was sent here by his oncologist who received blood tests from the lab with low sp4 platelet readings. Dr. Miranda Baum is patient's Oncologist . States patient has history of myelodysplastic syndrome.. Historical: - Allergies: 04/16 18:30 SHELLFISH; ll1 18:30 Bactrim; ll1 - PMHx: 18:30 ascites; Diabetes - NIDDM; esophageal varicies; cirrhosis of liver; High Cholesterol; ll1 Hypertension; Portal Hypertension; - Immunization history:: Adult Immunizations up to date. - Infectious Disease History:: Denies. - Social history:: Smoking status: Patient denies any tobacco usage or history of. - Family history:: not pertinent. ROS: 04/17 06:23 Constitutional: Negative for fever, chills, and weight loss, positive for generalized sp4 fatigue All other systems are negative, Exam: 06:23 Constitutional: This is a well developed, well nourished patient who is awake, alert, sp4 and in no acute distress. Has generalized pallor, he is ill-appearing but nontoxic Head/Face: Normocephalic, atraumatic. Eyes: Pupils equal round and reactive to light, extra-ocular motions intact. Lids and lashes normal. Conjunctiva and sclera are not injected. Cornea within normal limits. Periorbital areas with no swelling, redness, or edema. ENT: Nares patent. No nasal discharge, no septal abnormalities noted. Tympanic membranes are normal and external auditory canals are clear. Oropharynx with no redness, swelling, or masses, exudates, or evidence of obstruction, uvula midline. Mucous membranes moist. Neck: Trachea midline, no thyromegaly or masses palpated, and no cervical lymphadenopathy. Supple, full range of motion without nuchal rigidity, or vertebral point tenderness. Chest/axilla: Normal chest wall appearance and motion. Nontender with no deformity. No lesions are appreciated. Cardiovascular: Regular rate and rhythm with a normal S1 and S2. No gallops, murmurs, or rubs. Normal PMI, no JVD. No pulse deficits. Respiratory: Lungs have equal breath sounds bilaterally, clear to auscultation and percussion. No rales, rhonchi or wheezes noted. No increased work of breathing, no retractions or nasal flaring. Abdomen/GI: Soft, with normal bowel sounds. No distension or tympany. No guarding or rebound. No evidence of tenderness throughout. Diminished prominent and has signs of abdominal ascites Back: No spinal tenderness. No costovertebral tenderness. Skin: Warm, dry with normal turgor. Normal color with no rashes, no lesions, and no evidence of cellulitis. Patient has multiple subcutaneous small hematomas secondary to easy bleeding MS/ Extremity: Pulses equal, no cyanosis. Neurovascular intact. Full, normal range of motion. Neuro: Awake and alert, GCS 15, oriented to person, place, time, and situation. Cranial nerves II-XII grossly intact. Motor strength 5/5 in all extremities. Sensory grossly intact. Psych: Awake, alert, with orientation to person, place and time. Behavior, mood, and affect are within normal limits Vital Signs: 04/16 18:31 BP 155 / 62; Pulse 64; Resp 18; Temp 97.9; Pulse Ox 100% ; Weight 82.55 kg; Height 5 ll1 ft. 8 in. ; Pain 0/10; 19:30 BP 156 / 84; Pulse 65; Resp 18; Temp 97.9; Pulse Ox 99% on R/A; Pain 0/10; bm8 22:09 BP 134 / 53; Pulse 66; Resp 17; Temp 97.9; Pulse Ox 98% on R/A; Pain 0/10; bm8 23:43 BP 125 / 45; Pulse 60; Resp 18 S; Pulse Ox 97% on R/A; br2 18:31 Body Mass Index 27.67 (82.55 kg, 172.72 cm) ll1 18:31 Pain Scale: Adult ll1 19:30 Pain Scale: Adult bm8 22:09 Pain Scale: Adult bm8 [place] Coma Score: 19:30 Eye Response: spontaneous(4). Motor Response: obeys commands(6). Verbal Response: bm8 oriented(5). Total: 15. 22:09 Eye Response: spontaneous(4). Motor Response: obeys commands(6). Verbal Response: bm8 oriented(5). Total: 15. 04/17 06:23 Eye Response: spontaneous(4). Motor Response: obeys commands(6). Verbal Response: sp4 oriented(5). Total: 15. MDM: 04/16 18:34 Medical Screening Exam initiated kb 20:32 ED course: Ultrasound 04/04/2024 - EXAMINATION: COMPLETE ABDOMINAL ULTRASOUND sp4 TECHNIQUE: Grayscale ultrasonography of the abdomen was performed. COMPARISON: 04/26/2022 FINDINGS: LIVER: Shrunken, nodular and heterogenous liver compatible with significant cirrhosis. GALLBLADDER: No gallstones, gall bladder wall thickening or pericholecystic fluid. BILE DUCTS: Intrahepatic and extrahepatic bile ducts appear normal. Measured near the lino hepatis, the common bile duct is 5 mm. RIGHT KIDNEY: Normal in echogenicity and size. No calculus, solid mass or hydronephrosis. LEFT KIDNEY:. Normal in echogenicity and size. No calculus, solid mass or hydronephrosis. SPLEEN: Enlarged measuring 17 cm. PANCREAS/AORTA: Partially obscured by bowel gas without abnormality grossly appreciated. Mild ascites. IMPRESSION: Significant liver cirrhosis. Mild ascites. Moderate splenomegaly. . 04/17 06:23 Differential Diagnosis altered mental status, sepsis, flu. Data reviewed: vital signs, sp4 nurses notes, lab test result(s), CBC. Consideration of Admission/Observation Escalation of care including admission/observation considered. ED course: Patient was discussed with his oncologist Dr. Miranda Baum, states that based on current parameters patient does not warrant platelet transfusion. Time patient stable for discharge home. Dr. Baum has advised p.o. levofloxacin for the next 7 days.. 04/16 19:04 Order name: CBC with Diff; Complete Time: 21:26 sb4 04/16 19:04 Order name: Type And Screen; Complete Time: 21:26 sb4 04/16 19:05 Order name: PT-INR; Complete Time: 20:22 sb4 04/16 19:05 Order name: Ptt, Activated; Complete Time: 20:22 sb4 04/16 21:07 Order name: Manual Differential; Complete Time: 21:26 EDMS 04/16 19:04 Order name: Labs collected and sent; Complete Time: 19:34 sb4 04/16 19:39 Order name: IV Saline Lock; Complete Time: 19:47 bo1 04/16 19:43 Order name: Misc. Order: RECOLLECT BLUE AND GREEN TOP; Complete Time: 20:02 rv1 Administered Medications: No medications were administered Disposition Summary: 04/16/24 23:29 Discharge Ordered Notes: Location: Home sp4 Problem: new sp4 Symptoms: have improved sp4 Condition: Stable sp4 Diagnosis - Thrombocytopenia, unspecified sp4 - Myelodysplastic syndrome with thrombocytopenia, concern for low hemoglobin, sp4 generalized weakness Followup: sp4 - With: Sasha Flowers MD - When: 10 - 14 days - Reason: Recheck today's complaints Discharge Instructions: - Discharge Summary Sheet sp4 - Thrombocytopenia sp4 - Myelodysplastic Syndrome sp4 Forms: - Patient Portal Instructions sp4 Prescriptions: - levofloxacin 750 mg Oral tablet - take 1 tablet ORAL route once daily for 7 days; 7 tablet; Refills: 0, Product sp4 Selection Permitted Signatures: Dispatcher [employer] EDKeara Nguyen FNP-C FNP-Ckb Lewis, Lynsay, RN RN ll1 Rebeca Márquez PA-C PACarlos sb4 Berenice Green rv1 Steve Ochoa MD MD sp4 Allen Leon MD MD bo1 Lai Galdamez, RN RN bm8 Corrections: (The following items were deleted from the chart) 04/16 22:34 19:05 BASIC METABOLIC PANEL+C.LAB.BRZ ordered. EDMS EDMS 23:02 20:12 Abdomen Pelvis W Con+CT.RAD.BRZ ordered. EDMS EDMS
[2024-04-17 05:18] VITALS: TEMP 97.9
[2024-04-17 05:22] VITALS: BP 125/45; O2SAT 97
== END 2024-04-16 23:44 | disposition home or self-care (01) ==
LOC: ER 18:14
DX: D69.6 Thrombocytopenia, unspecified (principal); D46.9 Myelodysplastic syndrome, unspecified; R79.89 Other specified abnormal findings of blood chemistry; E11.9 Type 2 diabetes mellitus without complications; E78.00 Pure hypercholesterolemia, unspecified; K74.60 Unspecified cirrhosis of liver; I10 Essential (primary) hypertension
CPT/HCPCS: 36415; 85025; 85610; 85730; 86850; 86900; 86901; 99284

== ENCOUNTER 2024-05-03 16:26 | Emergency (ER) | payer OTHER ==
--- NOTE | 2024-05-03 16:47 | ER ---
Nurse's Notes [facility] Name: Robert Tubbs Age: 78 yrs Sex: Male : 1945 Arrival Date: 05/03/2024 Time: 16:26 Bed IW3 Private MD: Diagnosis: Pain in throat Presentation: 05/03 16:47 Chief complaint: Patient states: I think I got a piece of cheese stuck in my throat. I tm6 get stuff stuck pretty often, especially pills. Coronavirus screen: Client denies travel out of the [place] in the last 14 days. Ebola Screen: Patient negative for fever greater than or equal to 101.5 degrees Fahrenheit, and additional compatible Ebola Virus Disease symptoms Patient denies exposure to infectious person. Patient denies travel to an Ebola-affected area in the 21 days before illness onset. No symptoms or risks identified at this time. Initial Sepsis Screen: Does the patient meet any 2 criteria? No. Patient's initial sepsis screen is negative. Does the patient have a suspected source of infection? No. Patient's initial sepsis screen is negative. Risk Assessment: Do you want to hurt yourself or someone else? Patient reports no desire to harm self or others. Onset of symptoms was May 03, 2024. 16:47 Method Of Arrival: Ambulatory tm6 16:47 Acuity: SYMONE 4 tm6 Triage Assessment: 16:47 General: Appears in no apparent distress. Behavior is calm, cooperative. Pain: Denies tm6 pain. EENT: Reports cheese possibly stuck in throat. Neuro: Level of Consciousness is awake, alert, obeys commands, Oriented to person, place, time, situation. Cardiovascular: Patient's skin is warm and dry. Respiratory: Airway is patent Respiratory effort is even, unlabored, Respiratory pattern is regular, symmetrical. GI: No signs and/or symptoms were reported involving the gastrointestinal system. Abdomen is round. : No signs and/or symptoms were reported regarding the genitourinary system. Derm: No signs and/or symptoms reported regarding the dermatologic system. Musculoskeletal: No signs and/or symptoms reported regarding the musculoskeletal system. Historical: - Allergies: 16:46 Bactrim; tm6 16:46 SHELLFISH; tm6 16:46 unknown antibiotic; tm6 - PMHx: 16:46 ascites; cirrhosis of liver; Diabetes - NIDDM; esophageal varicies; High Cholesterol; tm6 Hypertension; Portal Hypertension; - PSHx: 16:46 coronary stents (Portal Hypertension); tm6 - Immunization history:: Client reports having NOT received the Covid vaccine. - Infectious Disease History:: Denies. - Social history:: Smoking status: Patient denies any tobacco usage or history of. Patient/guardian denies using alcohol. Screenin:52 [facility] ED Fall Risk Assessment (Adult) History of falling in the last 3 months, tm6 including since admission No falls in past 3 months (0 pts) Confusion or Disorientation No (0 pts) Intoxicated or Sedated No (0 pts) Impaired Gait No (0 pts) Mobility Assist Device Used No (0 pt) Altered Elimination No (0 pt) Score/Fall Risk Level 0 - 2 = Low Risk Oriented to surroundings, Maintained a safe environment, Educated pt \T\ family on fall prevention, incl call for assistance when getting out of bed. Abuse screen: Denies threats or abuse. Denies injuries from another. Nutritional screening: No deficits noted. Tuberculosis screening: No symptoms or risk factors identified. Assessment: 16:52 Reassessment: see triage assessment. tm6 Vital Signs: 16:45 Pulse 76; Resp 17; Temp 96.4(TE); Pulse Ox 98% on R/A; Weight 81.65 kg; Height 5 ft. 8 tm6 in. ; Pain 0/10; 16:46 BP 144 / 63; MAP 86 mmHg; tm6 16:45 Body Mass Index 27.37 (81.65 kg, 172.72 cm) tm6 16:45 Pain Scale: Adult tm6 ED Course: 16:28 Patient arrived in ED. im 16:33 Taurus Owens DO is Attending Physician. ms3 16:47 Bernadette Ring MD is Referral Physician. ms3 16:47 Arm band placed on right wrist. tm6 16:48 Triage completed. tm6 16:52 Patient has correct armband on for positive identification. Provided Education on: tm6 follow up with PCP, return to ER if needed. 16:52 No provider procedures requiring assistance completed. Patient did not have IV access tm6 during this emergency room visit. Administered Medications: No medications were administered Medication: 16:52 VIS not applicable for this client. tm6 Outcome: 16:47 Discharge ordered by . ms3 16:52 Discharged to home ambulatory, tm6 16:52 Condition: stable 16:52 Discharge instructions given to patient, Instructed on discharge instructions, follow up and referral plans. Demonstrated understanding of instructions, follow-up care, 16:53 Patient left the ED. tm6 Signatures: Taurus Owens DO DO ms3 Jamilah Molina Tawney, RN RN tm6
--- NOTE | 2024-05-03 16:47 | EDPHYS ---
Physician Documentation [facility] Name: Robert Tubbs Age: 78 yrs Sex: Male : 1945 Arrival Date: 05/03/2024 Time: 16:26 Bed IW3 Private MD: ED Physician Taurus Owens HPI: 05/03 16:43 This 78 yrs old Male presents to ER via Unassigned with complaints of Foreign Body In ms3 Throat - piece of cheese. 16:43 78 year old male presents with a sensation of something stuck in the throat, which ms3 started around 1 p.m. today. The patient believed it might be a piece of cheese and did not feel it was life-threatening. The patient had a history of esophageal varices and reported a sensation of pills getting stuck in the past, but they eventually dissolved. The patient did not report any pain, nausea, or vomiting and was able to swallow liquids without difficulty. The sensation was localized to the back of the throat. . Historical: - Allergies: 16:46 Bactrim; tm6 16:46 SHELLFISH; tm6 16:46 unknown antibiotic; tm6 - PMHx: 16:46 ascites; cirrhosis of liver; Diabetes - NIDDM; esophageal varicies; High Cholesterol; tm6 Hypertension; Portal Hypertension; - PSHx: 16:46 coronary stents (Portal Hypertension); tm6 - Immunization history:: Client reports having NOT received the Covid vaccine. - Infectious Disease History:: Denies. - Social history:: Smoking status: Patient denies any tobacco usage or history of. Patient/guardian denies using alcohol. ROS: 16:43 Constitutional: Negative for fever, and chills. ms3 16:43 Respiratory: Negative for shortness of breath, cough, wheezing, and pleuritic chest pain, Abdomen/GI: Negative for abdominal pain, nausea, vomiting, diarrhea, and constipation, Skin: Negative for injury, rash, and discoloration, 16:43 ENT: Positive for sore throat, Exam: 16:43 Constitutional: This is a well developed, well nourished patient who is awake, alert, ms3 and in no acute distress. Cardiovascular: Regular rate and rhythm with a normal S1 and S2. No gallops, murmurs, or rubs. Normal PMI, no JVD. No pulse deficits. Respiratory: Lungs have equal breath sounds bilaterally, clear to auscultation and percussion. No rales, rhonchi or wheezes noted. No increased work of breathing, no retractions or nasal flaring. Abdomen/GI: Soft, non-tender, with normal bowel sounds. No distension or tympany. No guarding or rebound. No evidence of tenderness throughout. 16:43 ENT: Posterior pharynx: Airway: patent, swelling, is not appreciated, erythema, that is mild, exudate, is not appreciated, peritonsillar mass, is not appreciated, PND present, no foreign body present, Vital Signs: 16:45 Pulse 76; Resp 17; Temp 96.4(TE); Pulse Ox 98% on R/A; Weight 81.65 kg; Height 5 ft. 8 tm6 in. ; Pain 0/10; 16:46 BP 144 / 63; MAP 86 mmHg; tm6 16:45 Body Mass Index 27.37 (81.65 kg, 172.72 cm) tm6 16:45 Pain Scale: Adult tm6 MDM: 16:43 Medical Screening Exam initiated ms3 16:43 Differential diagnosis: PND vs Pharyngeal irritation. Data reviewed: vital signs, ms3 nurses notes, and as a result, I will discharge patient. Counseling: I had a detailed discussion with the patient and/or guardian regarding the historical points, exam findings, and any diagnostic results supporting the discharge/admit diagnosis, the need for outpatient follow up, to return to the emergency department if symptoms worsen or persist or if there are any questions or concerns that arise at home. Special discussion: I discussed with the patient/guardian in detail that at this point there is no indication for admission to the hospital. It is understood, however, that if the symptoms persist or worsen the patient needs to return immediately for re-evaluation. ED course: In the emergency department patient tolerating p.o., speaking full sentences, without respiratory distress, ambulatory. Patient to follow-up with gastroenterology in 2 to 3 days if symptoms persist. Patient understands and agrees with plan. All questions were answered. Return precautions discussed include worsening symptoms, or any other concerns.. Administered Medications: No medications were administered Disposition Summary: 05/03/24 16:47 Discharge Ordered Notes: Location: Home ms3 Condition: Stable ms3 Diagnosis - Pain in throat ms3 Followup: ms3 - With: Bernadette Ring MD - When: 2 - 3 days - Reason: Recheck today's complaints Discharge Instructions: - Discharge Summary Sheet ms3 - Sore Throat, Xxwn-[id number] ms3 Forms: - Medication Reconciliation Form ms3 - Antibiotic Education ms3 - Prescription Opioid Use ms3 - Patient Portal Instructions ms3 - Leadership Thank You Letter ms3 Signatures: Taurus Owens DO DO ms3 Alessandra Alanis RN RN tm6
[2024-05-03 17:23] VITALS: TEMP 96.4; O2SAT 98
[2024-05-03 17:24] VITALS: BP 144/63
== END 2024-05-03 16:53 | disposition home or self-care (01) ==
LOC: ER 16:26
DX: R07.0 Pain in throat (principal); I85.00 Esophageal varices without bleeding
CPT/HCPCS: 99282

== ENCOUNTER 2024-07-01 05:45 | Emergency (ER) | payer OTHER ==
[2024-07-01 06:35] LABS: Absolute Lymphocytes (CBC) 0.1 K/uL (0.7-4.9); Absolute Neutrophil 0.4 K/uL (1.8-8.0); Basophils % 0.8 % (0-1.3); Eosinophils % 0.6 % (0-4.4); Hematocrit 30.2 % (39.6-49.0); Hemoglobin 10.3 g/dL (13.6-17.9); Lymphocytes % 13.7 % (15.3-44.8); MCH 37.6 pg (27.0-35.0); MCHC 34.2 g/dL (32.0-36.0); MPV 8.1 fL (7.6-11.3); Monocytes % 2.4 % (3.3-12.3); Neutrophils % 82.5 % (41.7-73.7); Nucleated Red Blood Cells % 1.7 % (0-0); Platelets 55 thou/uL (152-406); RBC Red Blood Cell Count 2.75 M/uL (4.33-5.43); Red Cell Distribution Width 20.9 % (12.1-15.2)
[2024-07-01 06:39] LABS: PT Prothrombin Time 12.8 SECONDS (9.4-12.5); PTT, Activated Partial Thromb 29.7 SECONDS (24.3-36.9); Protime INR 1.15
[2024-07-01] MEDS ORDERED: NOREPINEPHRINE BITARTRATE/D5W 4 MG/250 ML KIT IV ONE ×2 (06:42→11:45)
[2024-07-01] MEDS ORDERED: ALBUMIN HUMAN 25% 200 ML IV ONE (06:43)
[2024-07-01] MEDS ORDERED: NA CHLORIDE 0.9% 500 ML ONE (06:48)
[2024-07-01] MEDS ORDERED: DOPAMINE/D5W 400 MG/250 ML BAG IV ONE (06:48)
[2024-07-01 06:52] LABS: Arterial Blood Carboxyhemoglob 2.6 % (0-1.5); Blood Gas Oxyhemoglobin 89.9 % (94-97)
[2024-07-01 06:54] LABS: Albumin 2.1 g/dL (3.4-5.0); Albumin/Globulin Ratio 0.8 (1.1-1.8); Anion Gap 12.4 mEq/L (5.0-15.0); Bilirubin Total 4.4 mg/dL (0.2-1.0); Globulin 2.5 g/dL (2.3-3.5); Potassium 3.4 mEq/L (3.5-5.1); Protein, Total 4.6 g/dL (6.4-8.2); Troponin High Sensitivity 39.7 pg/mL (<58.9)
[2024-07-01 06:55] LABS: Blood Gas THB 11.1 g/dl (12-18)
[2024-07-01] MEDS ORDERED: ONDANSETRON 4 MG/2 ML VIAL ONE (07:23)
[2024-07-01] MEDS ORDERED: NA CHLORIDE 0.9% 100 ML ONE (07:24)
[2024-07-01] MEDS ORDERED: CEFEPIME 2 GM VIAL ONE (07:24)
[2024-07-01] MEDS ORDERED: NA CHLORIDE 0.9% 250 ML ONE (07:24)
[2024-07-01] MEDS ORDERED: VANCOMYCIN 1 GM/VIAL ONE (07:24)
[2024-07-01 07:37] LABS: Platelet Estimate DECR; White Blood Cell Scan OK (OK)
[2024-07-01 07:38] LABS: Anisocytosis 1+; Blood Morphology Comment NOTED (NOT SEEN); Macrocytosis 1+; Polychromasia 1+
--- NOTE | 2024-07-01 07:51 | RAD REPORT ---
Procedure: Chest Single View HISTORY: Central venous line placement FINDINGS: Central venous line has been placed with about 4 cm into the right atrium No pneumothorax
--- NOTE | 2024-07-01 07:59 | ER ---
Nurse's Notes [facility] Name: Robert Tubbs Age: 78 yrs Sex: Male : 1945 Arrival Date: 07/01/2024 Time: 05:45 Bed 20 Private MD: Diagnosis: Fever, unspecified;Neutropenia, unspecified-MDS;Severe sepsis with septic shock;Alcoholic cirrhosis of liver with ascites Presentation: 07/01 05:47 Chief complaint: EMS states: fever and vomiting that started today. Coronavirus screen: cp4 Client denies travel out of the [place] in the last 14 days. At this time, the client does not indicate any symptoms associated with coronavirus-19. Ebola Screen: Patient negative for fever greater than or equal to 101.5 degrees Fahrenheit, and additional compatible Ebola Virus Disease symptoms Patient denies exposure to infectious person. Patient denies travel to an Ebola-affected area in the 21 days before illness onset. No symptoms or risks identified at this time. Initial Sepsis Screen: Does the patient meet any 2 criteria? HR > 90 bpm. No. Patient's initial sepsis screen is negative. Does the patient have a suspected source of infection? No. Patient's initial sepsis screen is negative. Risk Assessment: Do you want to hurt yourself or someone else? Patient reports no desire to harm self or others. Onset of symptoms was July 01, 2024. 05:47 Method Of Arrival: EMS: [facility] cp4 05:47 Acuity: SYMONE 3 cp4 05:56 Care prior to arrival: Medication(s) given: Tylenol, 500 mg. cp4 08:58 Acuity: SYMONE 2 ph Triage Assessment: 05:49 General: Appears in no apparent distress. comfortable, Behavior is calm, cooperative, cp4 appropriate for age. Pain: Denies pain. EENT: No signs and/or symptoms were reported regarding the EENT system. Neuro: Level of Consciousness is awake, alert, obeys commands, Oriented to person, place, time, situation. Cardiovascular: Patient's skin is warm and dry. Respiratory: Airway is patent Respiratory effort is even, unlabored. GI: Parent/caregiver reports the patient having vomiting. Historical: - Allergies: 05:49 Bactrim; cp4 05:49 SHELLFISH; cp4 05:49 unknown antibiotic; cp4 - Home Meds: 05:49 amlodipine 5 mg tab 1 tab once daily [Active]; aspirin 81 mg Oral TbEC 2 tabs twice a cp4 day [Active]; clopidogrel 75 mg Oral tab 1 tab once daily [Active]; fenofibrate 150 mg Oral cap 1 cap once daily [Active]; glimepiride 4 mg Oral tab 1 tab once daily [Active]; Januvia 50 mg Oral tab 2 tabs once daily [Active]; lactulose 10 gram/15 mL Oral soln 30 mL once daily [Active]; lisinopril 40 mg Oral tab 1 tab once daily [Active]; montelukast 10 mg Oral tab 1 tab once daily [Active]; propranolol 10 mg Oral tab 1 tab twice a day [Active]; tamsulosin 0.4 mg Oral cp24 1 cap once daily [Active]; - PMHx: 05:49 ascites; cirrhosis of liver; Diabetes - NIDDM; esophageal varicies; High Cholesterol; cp4 Hypertension; Portal Hypertension; - PSHx: 05:49 coronary stents (H); cp4 - Immunization history:: Adult Immunizations up to date. - Infectious Disease History:: Denies. - Social history:: Smoking status: Patient denies any tobacco usage or history of. - Family history:: not pertinent. Screenin:57 [facility] ED Fall Risk Assessment (Adult) History of falling in the last 3 months, cp4 including since admission No falls in past 3 months (0 pts) Confusion or Disorientation No (0 pts) Intoxicated or Sedated No (0 pts) Impaired Gait No (0 pts) Mobility Assist Device Used No (0 pt) Altered Elimination No (0 pt) Score/Fall Risk Level 0 - 2 = Low Risk Oriented to surroundings, Maintained a safe environment, Assessed \T\ reinforced patient's understanding of fall precautions, Hourly rounding (assess needs \T\ fall precautionary measures) done. Abuse screen: Denies threats or abuse. Nutritional screening: No deficits noted. Tuberculosis screening: No symptoms or risk factors identified. Assessment: 05:57 Reassessment: No changes from previously documented assessment. cp4 06:45 Reassessment: Patient BP in 60s. Provider notified. Orders for central line kit and cp4 meds given. 07:05 Reassessment: Report given to cp4 Vital Signs: 05:47 BP 91 / 54; Pulse 103; Resp 16; Temp 98.6; Pulse Ox 96% ; Pain 0/10; cp4 06:41 Weight 77.11 kg; cp4 06:45 BP 68 / 41; Pulse 88; Resp 18; Pulse Ox 100% on 2 lpm NC; cp4 07:50 BP 115 / 62; Pulse 94; Resp 18; Pulse Ox 100% on 4 lpm NC; ph 10:27 BP 108 / 58; Pulse 97; Resp 18; Pulse Ox 98% on 4 lpm NC; ph 05:47 Pain Scale: Adult cp4 Vitals: 10:27 Cardiac Rhythm Assessment Sinus rhythm. ph [place] Coma Score: 07:25 Eye Response: to voice(3). Motor Response: obeys commands(6). Verbal Response: sp4 confused(4). Total: 13. ED Course: 05:47 Patient arrived in ED. cp4 05:47 Lisette Carter is Primary Nurse. cp4 05:48 Steve Ochoa MD is Attending Physician. sp4 05:49 Triage completed. cp4 05:49 Arm band placed on right wrist. Patient placed in an exam room, on a stretcher. cp4 05:57 Bed in low position. Call light in reach. Side rails up X 1. cp4 05:57 No provider procedures requiring assistance completed. Inserted saline lock: Maintain 4 EMS IV. Dressing intact. Good blood return noted. Site clean \T\ dry. Gauge \T\ site: 20G Left AC. Flushed with 10 mL NS. 06:13 Chest Single View XRAY In Process Unspecified. EDMS 06:49 EKG done, by ED staff. vk 07:10 Assisted provider with central line placement. Set up central line tray. Triple lumen ph line placed in right internal jugular. Line placed by Steve Ochoa MD Placement verified by CXR, blood return, Dressed with Tegaderm, Patient tolerated well. Before procedure, did Practitioner(s) obtain informed consent? Yes. Patient \T\ family education about procedure, CLABSI prevention and S/S of infection? Yes. Time-out/Briefing performed prior to start of procedure? Yes. Was handwashing/sanitizing done immediately prior to procedure? Yes. Was patient positioned to in a way to prevent air embolism? Yes. Was procedure site sterilized? Yes, with chlorhexidine. Was the site allowed to dry? Yes. Was local anesthetic and/or sedation utilized? Yes. During the procedure, did the Practitioner(s) maintain a sterile field? Yes. Were unused ports clamped during insertion? Yes. Was a 2nd qualified MD obtained after 3 unsuccessful insertion attempts? No. Was blood aspirated from each lumen? Yes. After the procedure, did the Practitioner(s) clean the site and apply a sterile dressing? Yes. 07:43 Chest Single View XRAY In Process Unspecified. EDMS 07:56 Attending Physician role handed off by Steve Ochoa MD [facility] 07:56 Jose Cruz Matthews MD is Attending Physician. viki 08:[address] Matthews with Liss from the [facility]. eb 08:02 initiated a transfer with Elissa from the [facility]/ per [facility] eb will have to decline they are on ICU and Med/ Surg capacity. 08:14 CT Head Brain wo Cont In Process Unspecified. EDMS 08:15 CT Chest Abdomen Pelvis W/O Contrast In Process Unspecified. EDMS 08:39 connected the garment folder data operations leader for [facility] with Dr. Matthews for patient eb transfer consultation. 08:53 administrative approval given by Liss Bhandari RN/ patient has been accepted to [facility] Room 7310 / Dr. Mark Goldman has accepted the patient in transfer/ report to be called to [phone]. 09:14 reinitiated a transfer with Randy from the [facility] transfer at the request of the eb patient's family/ per family Dr. Crandall would like the patient sent to the ER to wait for a bed to become available there. 09:42 Primary Nurse role handed off by Lisette Carter ph 09:42 Teresa Miller, RN is Primary Nurse. ph 09:49 Patient transferred, IV remains in place. ph 09:49 Urine collected: straight cath specimen, romana colored. Straight cath inserted, using ph sterile technique, 14 Fr. Specimen obtained. Returned romana urine. Patient tolerated poorly. 10:08 Randy from [facility] called for an extension on the transfer/ they are still waiting eb for the provider to call them back. 10:50 connected the ED doc from [facility] with Dr. Matthews for patient transfer eb consultation. 10:51 admin approval given by Randy pending registration/ once she receives the face sheet eb on the patient she will call us back to give MOT information. 11:11 patient going to [facility] ER/ Dr. Gagan Kwan has accepted the patient in eb transfer/ connected PJ with transfer center to be connected with the ED nurse. Administered Medications: 06:59 Drug: DOPamine IV (400mg/250mL Premix) 5 mcg/kg/min IV at calculated rate See cp4 Administration Instructions; Recommended max rate 20 mcg/kg/min; Titrate 2.5 mcg/kg/min as often as every 5 minutes to achieve goal (see titration policy); Goal parameter MAP greater than 65 mmHg. [*Low doses 1 to 4 mcg/kg/min may result in hypotension, decreased SVR*] Route: IV; Rate: calculated rate; Site: right antecubital; 07:38 Follow up: IV Status: Completed infusion ph 07:45 Drug: Norepinephrine IV 0.1 mcg/kg/min IV at calculated rate See Administration ph Instructions; (Standard concentration 4 mg / 250 mL D5W); Recommended max rate 3 mcg/kg/min; Titrate 0.05 mcg/kg/min as often as every 5 minutes to achieve goal (see titration policy); Goal parameter MAP greater than 65 mmHg. Route: IV; Rate: calculated rate; Site: right jugular; 07:46 Drug: Ondansetron IVP 4 mg IVP once; over 2 minutes Route: IVP; Site: right jugular; ph 08:30 Drug: Albumin IVPB 25 grams 100 ml IVPB once; (Note: Albumin 25% concentration) Volume: ph 100 ml; Route: IVPB; Site: right jugular; 08:30 Drug: NS 0.9% IV 500 ml IV at bolus once; to be given as a bolus over 30 minutes Route: ph IV; Rate: bolus; Site: left jugular; 09:30 Drug: Cefepime IVPB 2 grams IVPB at 200 ml/hr once over 30 mins; (mix in NS 100 mL) ph Route: IVPB; Rate: 200 ml/hr; Infused Over: 30 mins; Site: left jugular; 10:26 Drug: vancoMYCIN IVPB 1 grams IVPB once over 2 hrs Route: IVPB; Infused Over: 2 hrs; ph Site: left jugular; 12:14 Not Given (Other Intervention Used): mg PO once ph 12:14 Not Given (Other Intervention Used): [id number] mg IVP once ph Medication: 05:57 VIS not applicable for this client. cp4 Outcome: 07:58 ER care complete, transfer ordered by MD. drew 12:18 Patient left the ED. ph Addendum: 07/04/2024 07:45 Addendum: Culture Results: Positive blood culture. faxed positive blood Culture report e b to RN on Arias Murillo patient in 1123/ faxed to [phone]. Signatures: Dispatcher [employer] EDMS Jose Cruz Matthews MD MD cha Hall, Patricia, RN RN Rosy Mcneill Sergey, MD MD Lisette Dockery Vivian vk Corrections: (The following items were deleted from the chart) 07/01 09:07 09:04 administrative approval given by Liss Bhandari RN/ patient has been accepted to [facility] Room 7310 / Dr. Mark Goldman has accepted the patient in transfer/ report to be called to [phone] 09:49 07:10 Assisted provider with central line placement. Set up central line tray. Triple ph lumen line placed in right internal jugular. ph
--- NOTE | 2024-07-01 07:59 | EDPHYS ---
Physician Documentation [facility] Name: Robert Tubbs Age: 78 yrs Sex: Male : 1945 Arrival Date: 07/01/2024 Time: 05:45 Bed 20 Private MD: GUANAKO Physician Jose Cruz Matthews HPI: 07/01 07:23 This 78 yrs old Male presents to ER via EMS with complaints of Fever. sp4 07:25 PMH- Allergies SHELLFISH; unknown antibiotic; PMHx: ascites; cirrhosis of liver; sp4 Diabetes - NIDDM; esophageal varicies; High Cholesterol; Hypertension; Portal Hypertension PSHx: coronary stents (Portal Hypertension);. 78 -year-old male with history of liver cirrhosis presents with hypotension fever and generalized weakness.. Patient is undergoing management of his liver disease at [facility] with paracentesis every Tuesday. Patient is DNR at this time. Patient's safety aide is Dr. Villegas, patient has had his last paracentesis on Tuesday06/29/2024. Patient is undergoing chemotherapy for myelodysplastic syndrome here with Dr. Baum . Patient developed acute fever and generalized weakness at home. Arrived with hypotension.. Historical: - Allergies: 05:49 Bactrim; cp4 05:49 SHELLFISH; cp4 05:49 unknown antibiotic; cp4 - Home Meds: 05:49 amlodipine 5 mg tab 1 tab once daily [Active]; aspirin 81 mg Oral TbEC 2 tabs twice a cp4 day [Active]; clopidogrel 75 mg Oral tab 1 tab once daily [Active]; fenofibrate 150 mg Oral cap 1 cap once daily [Active]; glimepiride 4 mg Oral tab 1 tab once daily [Active]; Januvia 50 mg Oral tab 2 tabs once daily [Active]; lactulose 10 gram/15 mL Oral soln 30 mL once daily [Active]; lisinopril 40 mg Oral tab 1 tab once daily [Active]; montelukast 10 mg Oral tab 1 tab once daily [Active]; propranolol 10 mg Oral tab 1 tab twice a day [Active]; tamsulosin 0.4 mg Oral cp24 1 cap once daily [Active]; - PMHx: 05:49 ascites; cirrhosis of liver; Diabetes - NIDDM; esophageal varicies; High Cholesterol; cp4 Hypertension; Portal Hypertension; - PSHx: 05:49 coronary stents (H); cp4 - Immunization history:: Adult Immunizations up to date. - Infectious Disease History:: Denies. - Social history:: Smoking status: Patient denies any tobacco usage or history of. - Family history:: not pertinent. ROS: 07:25 Constitutional: Positive for fever, positive generalized weakness sp4 07:25 All other systems are negative, Exam: 07:25 Constitutional: Ill-appearing male, pale, hypotensive, toxic appearing, diffuse sp4 jaundice, Head/Face: Normocephalic, atraumatic. Eyes: Pupils equal round and reactive to light, extra-ocular motions intact. Lids and lashes normal. Conjunctiva and sclera are not injected. Cornea within normal limits. Periorbital areas with no swelling, redness, or edema. ENT: Nares patent. No nasal discharge, no septal abnormalities noted. Tympanic membranes are normal and external auditory canals are clear. Oropharynx with no redness, swelling, or masses, exudates, or evidence of obstruction, uvula midline. Mucous membranes moist. Neck: Trachea midline, no thyromegaly or masses palpated, and no cervical lymphadenopathy. Supple, full range of motion without nuchal rigidity, or vertebral point tenderness. Chest/axilla: Normal chest wall appearance and motion. Nontender with no deformity. No lesions are appreciated. Cardiovascular: Regular rate and rhythm with a normal S1 and S2. No gallops, murmurs, or rubs. Normal PMI, no JVD. No pulse deficits. Respiratory: Lungs have equal breath sounds bilaterally, clear to auscultation and percussion. No rales, rhonchi or wheezes noted. No increased work of breathing, no retractions or nasal flaring. Abdomen/GI: Soft, with normal bowel sounds. No distension or tympany. There is abdominal ascites which is moderate, left lower quadrant abdominal bandage from recent paracentesis. Back: No spinal tenderness. No costovertebral tenderness. Skin: Warm, dry with normal turgor. Generalized pallor and jaundice MS/ Extremity: Pulses equal, no cyanosis. Neurovascular intact. Full, normal range of motion. Neuro: Awake and alert, oriented to person, Cranial nerves II-XII grossly intact. Motor strength 5/5 in all extremities. Sensory grossly intact. 07:38 ECG was reviewed by the Attending Physician. EKG at 646 sinus rhythm with PVCs. sp4 Vital Signs: 05:47 BP 91 / 54; Pulse 103; Resp 16; Temp 98.6; Pulse Ox 96% ; Pain 0/10; cp4 06:41 Weight 77.11 kg; cp4 06:45 BP 68 / 41; Pulse 88; Resp 18; Pulse Ox 100% on 2 lpm NC; cp4 07:50 BP 115 / 62; Pulse 94; Resp 18; Pulse Ox 100% on 4 lpm NC; ph 10:27 BP 108 / 58; Pulse 97; Resp 18; Pulse Ox 98% on 4 lpm NC; ph 05:47 Pain Scale: Adult cp4 [place] Coma Score: 07:25 Eye Response: to voice(3). Motor Response: obeys commands(6). Verbal Response: sp4 confused(4). Total: 13. MDM: 05:50 Medical Screening Exam initiated sp4 07:38 Differential diagnosis: viral Infection, bacterial infection, URI, bronchitis, sp4 pneumonia UTI, gastroenteritis, meningitis. Data reviewed: vital signs, nurses notes, EMS record, lab test result(s), EKG, radiologic studies. ED course: EXAM: XR Chest, 1 View CLINICAL HISTORY: The patient is 78 years old and is Male; Chest pain. TECHNIQUE: Single view of the chest. COMPARISON: No relevant prior studies available. FINDINGS: Lungs: Bibasilar atelectasis. Small right pleural effusion. No pulmonary vascular congestion. Pleural space: No pneumothorax. Heart: Unremarkable. No cardiomegaly. Mediastinum: Unremarkable. Bones/joints: No acute fracture visualized. IMPRESSION: Bibasilar atelectasis. Small right pleural effusion . 07:39 Consideration of Admission/Observation Escalation of care including sp4 admission/observation considered. ED course: Awaiting for CT scan . 07:39 Transition of care: After a detail discussion of the patient's case, care is sp4 transferred to Jose Cruz Matthews MD. 07/01 05:49 Order name: Blood Culture Adult (2) sp4 07/01 05:49 Order name: CBC with Diff; Complete Time: 07:58 sp4 07/01 05:49 Order name: CMP; Complete Time: 07:24 sp4 07/01 05:49 Order name: Lactate w/ 2H reflex if indic.; Complete Time: 07:24 sp4 07/01 05:49 Order name: Protime (+inr); Complete Time: 07:24 sp4 07/01 05:49 Order name: Ptt, Activated; Complete Time: 07:24 sp4 07/01 05:49 Order name: Urinalysis w/ reflexes; Complete Time: 10:48 sp4 07/01 05:49 Order name: ABG; Complete Time: 07:24 sp4 07/01 05:49 Order name: Influenza Screen (a \T\ B); Complete Time: 07:24 sp4 07/01 05:50 Order name: Troponin High Sensitivity; Complete Time: 07:24 sp4 07/01 05:50 Order name: BNP; Complete Time: 07:24 sp4 07/01 06:48 Order name: CBC Smear Scan; Complete Time: 07:58 EDMS 07/01 07:03 Order name: Ghost Lactate-NO COLLECT Timer; Complete Time: 10:48 EDMS 07/01 08:00 Order name: AMMONIA; Complete Time: 10:48 [facility] 07/01 09:55 Order name: Lactate Sepsis 2 HR Follow-up; Complete Time: 10:48 EDMS 05 05:49 Order name: Chest Single View XRAY sp4 07/01 05:49 Order name: CT Head Brain wo Cont; Complete Time: 08:41 sp4 07/01 05:49 Order name: CT Chest Abdomen Pelvis W/O Contrast; Complete Time: 08:41 sp4 07/01 07:23 Order name: Chest Single View XRAY; Complete Time: 07:58 sp4 07/01 05:49 Order name: Accucheck; Complete Time: 07:04 sp4 07/01 05:49 Order name: Cardiac monitoring; Complete Time: 06:42 sp4 07/01 05:49 Order name: EKG - Nurse/Tech; Complete Time: 06:49 sp4 07/01 05:49 Order name: IV Saline Lock - Large Bore; Complete Time: 06:42 sp4 07/01 05:49 Order name: Labs collected and sent; Complete Time: 06:42 sp4 07/01 05:49 Order name: O2 Per Protocol; Complete Time: 06:42 sp4 07/01 05:49 Order name: O2 Sat Monitoring; Complete Time: 06:42 sp4 07/01 05:49 Order name: Vital Signs; Complete Time: 06:42 4 07/01 05:50 Order name: Central Line Dressing Kit; Complete Time: :07/01 05:50 Order name: Central Line Kit; Complete Time: 07:07/01 05:50 Order name: Chlorhexidine prep; Complete Time: 07:00 4 07/01 05:50 Order name: Consent for central line completed; Complete Time: : sp07/01 05:50 Order name: Line Caps x3; Complete Time: 07:07/01 05:50 Order name: NS Flushes x3; Complete Time: 07: sp07/01 05:50 Order name: Sterile Gloves; Complete Time: :07/01 05:50 Order name: Sterile Probe Cover; Complete Time: 07:00 4 EC:46 Rate is 95 beats/min. Rhythm is regular, Sinus Rhythm with PACs. QRS [place] is Normal. NC sp4 interval is normal. QRS interval is normal. QT interval is normal. No Q waves. T waves are Normal. No ST changes noted. Clinical impression: No evidence of ischemia. Interpreted by me. Reviewed by me. Administered Medications: 06:59 Drug: DOPamine IV (400mg/250mL Premix) 5 mcg/kg/min IV at calculated rate See cp4 Administration Instructions; Recommended max rate 20 mcg/kg/min; Titrate 2.5 mcg/kg/min as often as every 5 minutes to achieve goal (see titration policy); Goal parameter MAP greater than 65 mmHg. [*Low doses 1 to 4 mcg/kg/min may result in hypotension, decreased SVR*] Route: IV; Rate: calculated rate; Site: right antecubital; 07:38 Follow up: IV Status: Completed infusion ph 07:45 Drug: Norepinephrine IV 0.1 mcg/kg/min IV at calculated rate See Administration ph Instructions; (Standard concentration 4 mg / 250 mL D5W); Recommended max rate 3 mcg/kg/min; Titrate 0.05 mcg/kg/min as often as every 5 minutes to achieve goal (see titration policy); Goal parameter MAP greater than 65 mmHg. Route: IV; Rate: calculated rate; Site: right jugular; 07:46 Drug: Ondansetron IVP 4 mg IVP once; over 2 minutes Route: IVP; Site: right jugular; ph 08:30 Drug: Albumin IVPB 25 grams 100 ml IVPB once; (Note: Albumin 25% concentration) Volume: ph 100 ml; Route: IVPB; Site: right jugular; 08:30 Drug: NS 0.9% IV 500 ml IV at bolus once; to be given as a bolus over 30 minutes Route: ph IV; Rate: bolus; Site: left jugular; 09:30 Drug: Cefepime IVPB 2 grams IVPB at 200 ml/hr once over 30 mins; (mix in NS 100 mL) ph Route: IVPB; Rate: 200 ml/hr; Infused Over: 30 mins; Site: left jugular; 10:26 Drug: vancoMYCIN IVPB 1 grams IVPB once over 2 hrs Route: IVPB; Infused Over: 2 hrs; ph Site: left jugular; 12:14 Not Given (Other Intervention Used): [id number] mg PO once ph 12:14 Not Given (Other Intervention Used): mg IVP once ph Disposition Summary: 07/01/24 07:58 Transfer Ordered Notes: Transfer Location[facility] viki Reason: Higher level of care viki Condition: Serious viki Problem: an acute exacerbation viki Symptoms: have improved viki Accepting Physician: to anglican(07/01/24 12:18) ph Diagnosis - Fever, unspecified viki - Neutropenia, unspecified - MDS viki - Severe sepsis with septic shock viki - Alcoholic cirrhosis of liver with ascites viki Forms: - Medication Reconciliation Form viki - SBAR form viki Signatures: Dispatcher [employer] EDJose Cruz Calles MD MD cha Hall, Patricia, RN RN Steve Ochoa MD MD sp4 Potter, Christina cp4 Corrections: (The following items were deleted from the chart) 05:50 05:49 BLOOD CULTURE*+BA.LAB.BRZ ordered. EDMS EDMS 05:50 05:49 CBC+H.LAB.BRZ ordered. EDMS EDMS 05:50 05:49 COMPREHENSIVE METABOLIC PANEL+C.LAB.BRZ ordered. EDMS EDMS 05:50 05:49 LACTATE+C.LAB.BRZ ordered. EDMS EDMS 05:50 05:49 PROTIME (+INR)+COAG.LAB.BRZ ordered. EDMS EDMS 05:50 05:49 PTT, ACTIVATED+COAG.LAB.BRZ ordered. EDMS EDMS 05:50 05:49 Urinalysis+U.LAB.BRZ ordered. EDMS EDMS 05:50 05:50 Chest Single View+RAD.RAD.BRZ ordered. EDMS EDMS 05:50 05:50 Arterial Blood Gas+RC.LAB.BRZ ordered. EDMS EDMS 05:50 05:50 Influenza Screen (A \T\ B)+BA.LAB.BRZ ordered. EDMS EDMS 05:50 05:50 Head Brain Wo Cont+CT.RAD.BRZ ordered. EDMS EDMS 05:51 05:50 Troponin High Sensitivity+C.LAB.BRZ ordered. EDMS EDMS 05:51 05:51 PROBNP+C.LAB.BRZ ordered. EDMS EDMS 12:18 07:58 to anglican viki ph
--- NOTE | 2024-07-01 08:17 | RAD REPORT ---
EXAM: CT brain without contrast HISTORY: Confusion COMPARISON: None TECHNIQUE: Multiple contiguous axial images were obtained and a CT of the brain without contrast.. Sagittal and coronal reconstruction performed. Automated exposure control, adjustment of the mA and/or kV according to patient size, and/or iterative reconstruction. Unless otherwise specified, incidental f indings do not require dedicated imaging follow-up FINDINGS: An intracranial bleed is not seen Ventricles are normal caliber No extra-axial fluid collection noted No significant hypodensity within the brain No fluid within the visualized sinuses or mastoids noted. IMPRESSION: No acute intracranial abnormality noted. If the patient continues to have symptoms to suggest an acute intracranial abnormality then MRI of th e brain would be recommended.
--- NOTE | 2024-07-01 08:23 | RAD REPORT ---
EXAM: CT CHEST, ABDOMEN AND PELVIS WITHOUT CONTRAST CLINICAL INDICATION: Chest and abdominal pain TECHNIQUE: CT chest, abdomen and pelvis was performed, without IV contrast, as per department protoco l. Axial, sagittal and coronal reconstructions were obtained. One or more of the following dose reduction techniques were used: Automated exposure control, adjustment of the mA and/or kV according to the patient size, and/or iterative reconstruction. Unless otherwise specified, incidental findings do not require dedicated imaging follow-up. The lack of IV and oral contrast limits evaluation of the mediastinum, cora, vessels, organs and monica l. COMPARISON: CT abdomen 2021 FINDINGS: Lungs are clear. No mediastinal or hilar lymphadenopathy seen. No pleural effusion. No pericardial effusion. Cirrhotic liver. Small cyst spleen with peripheral calcification unchanged prior exam benign. Mild to moderate splenomegaly. Pancreas, adrenals and kidneys grossly normal. There is no evidence of diverticulitis. Borderline dilatation gallbladder. The gallbladder wall does not appear thickened Moderate ascites. Chronic compression fracture L3 body is moderate to marked Umbilical and inguinal hernias containing ascites.. Avascular necrosis right femoral head IMPRESSION: Cirrhosis with moderate ascites
--- NOTE | 2024-07-01 08:40 | RAD REPORT ---
EXAM: XR Chest, 1 View CLINICAL HISTORY: The patient is 78 years old and is Male; Chest pain. TECHNIQUE: Single view of the chest. COMPARISON: No relevant prior studies available. FINDINGS: Lungs: Bibasilar atelectasis. Small right pleural effusion. No pulmonary vascular congestion. Pleural space: No pneumothorax. Heart: Unremarkable. No cardiomegaly. Mediastinum: Unremarkable. Bones/joints: No acute fracture visualized. IMPRESSION: Bibasilar atelectasis. Small right pleural effusion. Electronically signed by: Angeline Alvarez MD 07/01/2024 07:22 AM [facility] [place] Due to temporary technical issues with the PACS/[employer] reporting system, reports are being xavier d by the in-house radiologist without review as a courtesy to ensure prompt reporting. The interpreting radiologist is fully responsible for the content of the report. Transcribed Date/Time: 07/01/2024 8:39 AM
[2024-07-01 10:07] LABS: Specific Gravity 1.016 (1.005-1.030); Sqamous Epithelial <5 /HPF (None Seen); Urine Bacteria <20 /HPF (<20); Urine Bilirubin 1+ (Negative); Urine Blood Negative (Negative); Urine Clarity Clear (Clear); Urine Color Yellow (Yellow); Urine Culture Reflex Order NOT NEEDED; Urine Glucose 4+ (Over) (Negative); Urine Ketones NEGATIVE (Negative); Urine Microscopic Reflex YN ORDER UMIC; Urine Mucus Slight /HPF (None Seen); Urine Nitrite NEGATIVE (Negative); Urine Protein NEGATIVE (Negative); Urine RBC <5 /HPF (None Seen); Urine Urobilinogen 2+ (Normal); Urine WBC <5 /HPF (<5); Urine pH 5.5 (5.0-7.0)
[2024-07-01 12:32] VITALS: BP 118/58; TEMP 98.1; O2SAT 100
--- NOTE | 2024-07-09 11:14 | EKG ---
Test Date: 2024-07-01 Test Time: 06:46:38 Training Associate: KARENA MEASUREMENT RESULTS: Intervals: Rate: 95 NM: 202 QRSD: 84 QT: 378 QTc: 475 [place]: P: 20 NM: 202 QRS: -29 T: 68 INTERPRETIVE STATEMENTS: Sinus rhythm with premature atrial complexes Possible Anterolateral infarct, age undetermined Abnormal ECG Compared to ECG 04/26/2022 19:45:36 Atrial premature complex(es) now present Myocardial infarct finding now present Accelerated junctional rhythm no longer present ST (T wave) deviation no longer present Electronically Signed On 07-09-24 11:02:13 [employer] by Jeancarlos Solano
== END 2024-07-01 12:18 | disposition short-term general hospital (02) ==
LOC: ER 05:45
DX: D70.9 Neutropenia, unspecified (principal); R65.21 Severe sepsis with septic shock; K70.31 Alcoholic cirrhosis of liver with ascites; E11.9 Type 2 diabetes mellitus without complications; I10 Essential (primary) hypertension; Z79.82 Long term (current) use of aspirin
CPT/HCPCS: 93005; 87040 ×2; 85025; 81001; 36415; 82140; 87205 ×4; 85610; 83605 ×2; 85730; 87077 ×2; 87186 ×2; 84484; 80053; 83880; 87804 ×2; 70450; 71250; 74176; 71045 ×2; 82805; 51702; 99285; 36556; 36600; P9047; J0692; J2405; J1265; J7050; J7040